=== PATIENT | female | born 1935 | race Caucasian/White ===

== ENCOUNTER 2020-08-26 22:14 | Emergency (ER) | payer MEDICARE, BC ==
[2020-08-26 23:30] VITALS: PULSE 84; TEMP 98.2
--- NOTE | 2020-08-26 23:55 | CT ---
EXAMINATION TYPE: CT brain anibal wo con DATE OF EXAM: 08/26/2020 COMPARISON: 04/15/2014 HISTORY: fall Headache. Neck pain CT DLP: 1416.2 mGycm Automated exposure control for dose reduction was used. There is cerebral cortical atrophy. There is hypodensity in the periventricular white matter. There i s no mass effect nor midline shift. There is no sign of intracranial hemorrhage. There is preseptal s oft tissue swelling around the right orbit. The nasal bone is intact. The calvarium is intact. There is mucosal thickening right side sphenoid sinus. The cervical vertebra have normal alignment. There is degenerative multilevel disc space narrowing an d spur formation. There is no cervical compression fracture. There is multilevel moderate hypertrophi c cervical facet arthropathy. There is no evidence of a fracture. IMPRESSION: Cerebral atrophy and chronic small vessel ischemia. No acute intracranial abnormality. Right side per iorbital soft tissue swelling. Brain unchanged compared to old exam. Sphenoid sinusitis is new compar ed to old exam. Multilevel cervical spondylotic changes. No fracture. No significant change compared to old exam.
--- NOTE | 2020-08-27 00:51 | ED ---
Fall HPI - General Chief Complaint: Fall Stated Complaint: Fall Time Seen by Provider: 08/27/20 00:04 Source: EMS Mode of arrival: EMS - History of Present Illness MD Complaint: fall Onset/Timin -: days(s) Fall From: standing When Fall Occurred: # days [employer] (2) Fall Witnessed: no Place Fall Occurred: home Loss of Consciousness: unsure Prolonged Down Time?: no Symptoms Prior to Fall: none Location: face Severity scale (1-10): 0 Context: tripped/slipped Associated Symptoms: denies - Related Data Home Medications Medication Instructions Recorded Confirmed Aspirin 325 mg PO DAILY 01/26/15 01/26/15 Atorvastatin [Lipitor] 40 mg PO HS 01/26/15 01/26/15 Citalopram Hydrobromide [CeleXA] 10 mg PO DAILY 01/26/15 01/26/15 Enalapril [Vasotec] 5 mg PO DAILY 01/26/15 01/26/15 Eszopiclone [Lunesta] 1 mg PO 01/26/15 01/26/15 Metoprolol Tartrate 25 mg PO QAM 01/26/15 01/26/15 Naproxen Sod/Diphenhydramine 1 each PO HS 01/26/15 01/26/15 [Aleve Pm Caplet] Oxybutynin Chloride [Ditropan] 2.5 mg PO DIRECTED PRN 01/26/15 01/26/15 Stool Softner 1 tab PO DAILY 01/26/15 01/26/15 Tri B-Plex 1 tab PO DAILY 01/26/15 01/26/15 Vitamin D 3 2 tab PO DAILY 01/26/15 01/26/15 diphenhydrAMINE HCL [Benadryl] 25 mg PO HS 01/26/15 01/26/15 metFORMIN HCL [Glucophage] 500 mg PO QAM 01/26/15 01/26/15 Previous Rx's Medication Instructions Recorded HYDROcodone/APAP 7.5-325MG [[place] 1 each PO Q4H PRN #60 tab 02/03/15 7.5] Allergies Allergy/AdvReac Type Severity Reaction Status Date / Time acetaminophen [From Percocet] Allergy Hallucinati Verified 01/26/15 13:42 ons buspirone HCl [From BuSpar] Allergy Nausea Verified 01/26/15 13:42 ciprofloxacin [From Cipro] Allergy Nausea Verified 01/26/15 13:42 ciprofloxacin HCl Allergy Nausea Verified 01/26/15 13:42 [From Cipro] codeine Allergy Unknown Verified 01/26/15 13:42 hydrocodone Allergy Nausea Verified 01/26/15 13:42 ondansetron HCl Allergy Nausea Verified 01/26/15 13:42 [From Zofran (as hydrochloride)] oxycodone HCl [From Percocet] Allergy Hallucinati Verified 01/26/15 13:42 ons trazodone Allergy nightmares Verified 01/26/15 13:42 Review of Systems ROS Statement: Those systems with pertinent positive or pertinent negative responses have been documented in the HPI. ROS Other: All systems not noted in ROS Statement are negative. Constitutional: Denies: fever, chills Eyes: Denies: eye pain, vision change ENT: Denies: ear pain, epistaxis Respiratory: Denies: cough, dyspnea Cardiovascular: Denies: chest pain, palpitations, edema Gastrointestinal: Denies: abdominal pain, vomiting, diarrhea Genitourinary: Denies: dysuria, hematuria Musculoskeletal: Denies: back pain Skin: Denies: rash Neurological: Denies: headache, weakness, numbness, confusion Past Medical History Past Medical History: Coronary Artery Disease (CAD), Diabetes Mellitus, GERD/Reflux, Hyperlipidemia, Hypertension, Osteoarthritis (OA), Skin Disorder Additional Past Medical History / Comment(s): "TIA years ago", hx colitis, rash on legs, numbness in feet History of Any Multi-Drug Resistant Organisms: None Reported Past Surgical History: Heart Catheterization, Hysterectomy, Joint Replacement, Orthopedic Surgery, Tonsillectomy Additional Past Surgical History / Comment(s): left knee surgery, rt hip replacement, surgery for fx pelvis Past Anesthesia/Blood Transfusion Reactions: Motion Sickness Past Psychological History: Anxiety, Depression Smoking Status: Never smoker Past Alcohol Use History: Occasional Past Drug Use History: None Reported - Past Family History Mother Family Medical History: No Reported History General Exam General appearance: alert, in no apparent distress Head exam: Present: atraumatic, normocephalic Eye exam: Present: EOMI, periorbital swelling (Right), periorbital tenderness. Absent: scleral icterus, conjunctival injection, nystagmus ENT exam: Present: normal oropharynx Neck exam: Present: normal inspection, full ROM. Absent: tenderness Respiratory exam: Present: normal lung sounds bilaterally. Absent: respiratory distress, wheezes, rales, rhonchi, stridor Cardiovascular Exam: Present: regular rate, normal rhythm, normal heart sounds. Absent: systolic murmur, diastolic murmur, rubs, gallop GI/Abdominal exam: Present: soft. Absent: distended, tenderness, guarding, rebound, rigid, mass Extremities exam: Present: normal inspection, normal capillary refill. Absent: pedal edema, calf tenderness Back exam: Present: normal inspection. Absent: CVA tenderness (R), CVA tenderness (L), vertebral tenderness Neurological exam: Present: alert, oriented X3. Absent: motor sensory deficit Skin exam: Present: warm, dry, intact, normal color, other (Right periorbital ecchymosis.) Course Vital Signs 08/26/20 22:15 Temperature 98.2 F Pulse Rate 84 Respiratory 20 Rate Blood Pressure 186/102 O2 Sat by Pulse 94 L Oximetry Medical Decision Making - Lab Data Result diagrams: 08/27/20 01:01 08/27/20 01:01 Lab Results 08/27/20 08/27/20 08/27/20 Range/Units 01:01 01:01 01:01 WBC 6.5 (3.8-10.6) k/uL RBC 4.25 (3.80-5.40) m/uL Hgb 12.9 (11.4-16.0) gm/dL Hct 37.7 (34.0-46.0) % MCV 88.6 (80.0-100.0) fL MCH 30.2 (25.0-35.0) pg MCHC 34.1 (31.0-37.0) g/dL RDW 13.1 (11.5-15.5) % Plt Count 199 (150-450) k/uL MPV 8.4 Neutrophils % 51 % Lymphocytes % 35 % Monocytes % 8 % Eosinophils % 3 % Basophils % 1 % Neutrophils # 3.3 (1.3-7.7) k/uL Lymphocytes # 2.3 (1.0-4.8) k/uL Monocytes # 0.5 (0-1.0) k/uL Eosinophils # 0.2 (0-0.7) k/uL Basophils # 0.0 (0-0.2) k/uL Sodium 138 (137-145) mmol/L Potassium 4.3 (3.5-5.1) mmol/L Chloride 102 (98-107) mmol/L Carbon Dioxide 22 (22-30) mmol/L Anion Gap 14 mmol/L BUN 16 (7-17) mg/dL Creatinine 0.72 (0.52-1.04) mg/dL Est GFR (CKD-EPI)AfAm 90 (>60 ml/min/1.73 sqM) Est GFR (CKD-EPI)NonAf 78 (>60 ml/min/1.73 sqM) Glucose 97 (74-99) mg/dL Calcium 9.5 (8.4-10.2) mg/dL Magnesium 2.0 (1.6-2.3) mg/dL Total Bilirubin 0.5 (0.2-1.3) mg/dL AST 36 (14-36) U/L ALT 27 (4-34) U/L Alkaline Phosphatase 58 (38-126) U/L Troponin I <0.012 (0.000-0.034) ng/mL Total Protein 8.0 (6.3-8.2) g/dL Albumin 5.0 (3.5-5.0) g/dL Urine Color Urine Appearance (Clear) Urine pH (5.0-8.0) Ur Specific [place] (1.001-1.035) Urine Protein (Negative) Urine Glucose (UA) (Negative) Urine Ketones (Negative) Urine Blood (Negative) Urine Nitrite (Negative) Urine Bilirubin (Negative) Urine Urobilinogen (<2.0) mg/dL Ur Leukocyte Esterase (Negative) 08/27/20 Range/Units 01:03 WBC (3.8-10.6) k/uL RBC (3.80-5.40) m/uL Hgb (11.4-16.0) gm/dL Hct (34.0-46.0) % MCV (80.0-100.0) fL MCH (25.0-35.0) pg MCHC (31.0-37.0) g/dL RDW (11.5-15.5) % Plt Count (150-450) k/uL MPV Neutrophils % % Lymphocytes % % Monocytes % % Eosinophils % % Basophils % % Neutrophils # (1.3-7.7) k/uL Lymphocytes # (1.0-4.8) k/uL Monocytes # (0-1.0) k/uL Eosinophils # (0-0.7) k/uL Basophils # (0-0.2) k/uL Sodium (137-145) mmol/L Potassium (3.5-5.1) mmol/L Chloride (98-107) mmol/L Carbon Dioxide (22-30) mmol/L Anion Gap mmol/L BUN (7-17) mg/dL Creatinine (0.52-1.04) mg/dL Est GFR (CKD-EPI)AfAm (>60 ml/min/1.73 sqM) Est GFR (CKD-EPI)NonAf (>60 ml/min/1.73 sqM) Glucose (74-99) mg/dL Calcium (8.4-10.2) mg/dL Magnesium (1.6-2.3) mg/dL Total Bilirubin (0.2-1.3) mg/dL AST (14-36) U/L ALT (4-34) U/L Alkaline Phosphatase (38-126) U/L Troponin I (0.000-0.034) ng/mL Total Protein (6.3-8.2) g/dL Albumin (3.5-5.0) g/dL Urine Color Colorless Urine Appearance Clear (Clear) Urine pH 6.0 (5.0-8.0) Ur Specific [place] 1.000 L (1.001-1.035) Urine Protein Negative (Negative) Urine Glucose (UA) Negative (Negative) Urine Ketones Negative (Negative) Urine Blood Negative (Negative) Urine Nitrite Negative (Negative) Urine Bilirubin Negative (Negative) Urine Urobilinogen <2.0 (<2.0) mg/dL Ur Leukocyte Esterase Negative (Negative) - EKG Data -: EKG Interpreted by [facility] EKG shows normal: sinus rhythm, axis (Normal), intervals (Normal), QRS complexes (Normal), ST-T waves (Normal) Rate: normal (Rate 82 bpm) Interpretation: normal EKG Disposition Clinical Impression: Fall, Contusion of face Disposition: HOME SELF-CARE Condition: Good Instructions (If sedation given, give patient instructions): Fall Prevention for Older Adults (ED), [place] (ED), Contusion in Adults (ED) Is patient prescribed a controlled substance at d/c from ED?: No Referrals: Kirstie Vazquez DO [Primary Care Provider] - 1-2 days
[2020-08-27 01:10] LABS: Appearance,Urine Clear (Clear); Bilirubin,Urine Negative (Negative); Blood,Urine Negative (Negative); Color,Urine Colorless; Glucose,Urine (UA) Negative (Negative); Ketones,Urine Negative (Negative); Leukocyte Esterase,Urine Negative (Negative); Nitrite,Urine Negative (Negative); Protein,Urine Negative (Negative); Urobilinogen,Urine <2.0 mg/dL (<2.0)
[2020-08-27 01:10] LABS: Basophils % (A) 1 %; Eosinophils # (A) 0.2 k/uL (0-0.7); Eosinophils % (A) 3 %; HCT 37.7 % (34.0-46.0); HGB 12.9 gm/dL (11.4-16.0); Lymphocytes # (A) 2.3 k/uL (1.0-4.8); Lymphocytes % (A) 35 %; MCH 30.2 pg (25.0-35.0); MCHC 34.1 g/dL (31.0-37.0); MCV 88.6 fL (80.0-100.0); Mean Platelet Volume 8.4; Monocytes # (A) 0.5 k/uL (0-1.0); Monocytes % (A) 8 %; Neutrophils # (A) 3.3 k/uL (1.3-7.7); Neutrophils % (A) 51 %; Platelet Count 199 k/uL (150-450); RBC 4.25 m/uL (3.80-5.40); RDW 13.1 % (11.5-15.5); WBC 6.5 k/uL (3.8-10.6)
[2020-08-27 01:20] LABS: Calcium 9.5 mg/dL (8.4-10.2); Potassium 4.3 mmol/L (3.5-5.1); Total Bilirubin 0.5 mg/dL (0.2-1.3)
[2020-08-27 02:26] VITALS: BP 176/84; RESP 18
== END 2020-08-27 03:21 | disposition home or self-care (01) ==
LOC: EC 22:14
DX: S00.83XA Contusion of other part of head, initial encounter (principal); E11.9 Type 2 diabetes mellitus without complications; I25.10 Atherosclerotic heart disease of native coronary artery without angina pectoris; K21.9 Gastro-esophageal reflux disease without esophagitis; M19.90 Unspecified osteoarthritis, unspecified site; E78.5 Hyperlipidemia, unspecified; I10 Essential (primary) hypertension; F41.9 Anxiety disorder, unspecified; F32.9 Major depressive disorder, single episode, unspecified; Z79.84 Long term (current) use of oral hypoglycemic drugs; W01.0XXA Fall on same level from slipping, tripping and stumbling without subsequent striking against object, initial encounter
CPT/HCPCS: 36415; 70450; 72125; 80053; 81003; 83735; 84484; 85025; 93005; 99284

== ENCOUNTER 2020-09-24 10:02 | Inpatient (IN) | payer MEDICARE, BC ==
[2020-09-24] MEDS ORDERED: KETOROLAC 15 MG/ML 1 ML VIAL IM STA (10:14)
--- NOTE | 2020-09-24 10:17 | ED ---
General Adult HPI - General Chief complaint: Extremity Injury, Lower Stated complaint: Rt Hip Pain Time Seen by Provider: 09/24/20 10:08 Source: patient, RN notes reviewed Mode of arrival: wheelchair Limitations: no limitations - History of Present Illness Initial comments: 85-year-old female with a past medical history of CAD, diabetes mellitus, hyperl ipidemia, hypertension, remote hip replacement presents to the emergency room for right hip pain. Patient reports that she woke up with right hip pain earlier today. She does not report injuring this. When she went to bed she did not have pain. States she cannot walk on the hip. Patient denies any fevers. Patient has no other complaints at this time including shortness of breath, chest pain, abdominal pain, nausea or vomiting, headache, or visual changes. - Related Data Home Medications Medication Instructions Recorded Confirmed Atorvastatin [Lipitor] 40 mg PO HS 01/26/15 09/24/20 Citalopram Hydrobromide [CeleXA] 40 mg PO DAILY 09/24/20 09/24/20 L.acidoph,Paracasei, B.lactis 1 cap PO DAILY 09/24/20 09/24/20 [Probiotic] Metoprolol Succinate (ER) [Toprol 25 mg PO DAILY 09/24/20 09/24/20 Xl] Multivitamins, Thera [Multivitamin 1 tab PO DAILY 09/24/20 09/24/20 (formulary)] Pioglitazone [Actos] 30 mg PO DAILY 09/24/20 09/24/20 metFORMIN HCL ER [Glucophage Xr] 500 mg PO TID 09/24/20 09/24/20 Allergies Allergy/AdvReac Type Severity Reaction Status Date / Time acetaminophen [From Percocet] Allergy Hallucinati Verified 09/24/20 11:20 ons buspirone HCl [From BuSpar] Allergy Nausea Verified 09/24/20 11:20 ciprofloxacin [From Cipro] Allergy Nausea Verified 09/24/20 11:20 ciprofloxacin HCl Allergy Nausea Verified 09/24/20 11:20 [From Cipro] codeine Allergy Unknown Verified 09/24/20 11:20 hydrocodone Allergy Nausea Verified 09/24/20 11:20 ondansetron HCl Allergy Nausea Verified 09/24/20 11:20 [From Zofran (as hydrochloride)] oxycodone HCl [From Percocet] Allergy Hallucinati Verified 09/24/20 11:20 ons trazodone Allergy nightmares Verified 09/24/20 11:20 Review of Systems ROS Statement: Those systems with pertinent positive or pertinent negative responses have been documented in the HPI. ROS Other: All systems not noted in ROS Statement are negative. Past Medical History Past Medical History: Coronary Artery Disease (CAD), Diabetes Mellitus, GERD/Reflux, Hyperlipidemia, Hypertension, Osteoarthritis (OA), Skin Disorder Additional Past Medical History / Comment(s): "TIA years ago", hx colitis, rash on legs, numbness in feet History of Any Multi-Drug Resistant Organisms: None Reported Past Surgical History: Heart Catheterization, Hysterectomy, Joint Replacement, Orthopedic Surgery, Tonsillectomy Additional Past Surgical History / Comment(s): left knee surgery, rt hip replacement, surgery for fx pelvis Past Anesthesia/Blood Transfusion Reactions: Motion Sickness Past Psychological History: Anxiety, Depression Smoking Status: Never smoker Past Alcohol Use History: Daily Past Drug Use History: None Reported - Past Family History Mother Family Medical History: No Reported History General Exam Limitations: no limitations General appearance: alert, in no apparent distress Head exam: Present: atraumatic, normocephalic, normal inspection Eye exam: Present: normal appearance, PERRL, EOMI. Absent: scleral icterus, conjunctival injection, periorbital swelling ENT exam: Present: normal exam, mucous membranes moist Neck exam: Present: normal inspection. Absent: tenderness, meningismus, lymphadenopathy Respiratory exam: Present: normal lung sounds bilaterally. Absent: respiratory distress, wheezes, rales, rhonchi, stridor Cardiovascular Exam: Present: regular rate, normal rhythm, normal heart sounds. Absent: systolic murmur, diastolic murmur, rubs, gallop, clicks GI/Abdominal exam: Present: soft, normal bowel sounds. Absent: distended, tenderness, guarding, rebound, rigid Extremities exam: Present: tenderness (Tenderness noted to the proximal femur of the right lower extremity.), normal capillary refill (Capillary refill less than 2 seconds, DP pulse 2+ in the right lower extremity.), other (Sensation intact right lower extremity.). Absent: full ROM (Patient has about 45 flexion of the hip, extension to neutral position.), pedal edema, calf tenderness Neurological exam: Present: alert Course Vital Signs 09/24/20 09/24/2009/24/21 10:04 11:30 11:54 Temperature 98.1 F 98.5 F Pulse Rate 70 76 Respiratory 18 18 Rate Blood Pressure 211/92 190/106 197/97 O2 Sat by Pulse 97 95 Oximetry Medical Decision Making - Medical Decision Making X-rays were obtained of the femur hip and pelvis. This did show right hip prosthesis with old fracture repair right hemipelvis. No acute osseous abnormality. Remote history of surgery over 10 years ago in [place]. Patient was given Toradol which did help with her symptoms however Attempted to ambulate patient. She is unable to bear weight on the leg. At this point IV pain medication was initiated. Patient again attempted ambulating, was unable to and bili. Patient lives alone without assistance. Patient is unable to go home at this time, as a high fall risk. Patient will be admitted for rehabilitation purposes and pain management.. Discussed case with Dr. Juarez, does accept admission. Requests orthopedic consultation. - Lab Data Result diagrams: 09/24/20 11:11 09/24/20 11:11 Lab Results 09/24/20 09/24/20 Range/Units 11:11 11:11 WBC 7.2 (3.8-10.6) k/uL RBC 4.10 (3.80-5.40) m/uL Hgb 12.5 (11.4-16.0) gm/dL Hct 36.6 (34.0-46.0) % MCV 89.3 (80.0-100.0) fL MCH 30.6 (25.0-35.0) pg MCHC 34.3 (31.0-37.0) g/dL RDW 12.9 (11.5-15.5) % Plt Count 195 (150-450) k/uL MPV 7.0 Neutrophils % 76 % Lymphocytes % 17 % Monocytes % 4 % Eosinophils % 1 % Basophils % 0 % Neutrophils # 5.4 (1.3-7.7) k/uL Lymphocytes # 1.2 (1.0-4.8) k/uL Monocytes # 0.3 (0-1.0) k/uL Eosinophils # 0.1 (0-0.7) k/uL Basophils # 0.0 (0-0.2) k/uL Sodium 136 L (137-145) mmol/L Potassium 4.5 (3.5-5.1) mmol/L Chloride 103 (98-107) mmol/L Carbon Dioxide 23 (22-30) mmol/L Anion Gap 10 mmol/L BUN 18 H (7-17) mg/dL Creatinine 0.58 (0.52-1.04) mg/dL Est GFR (CKD-EPI)AfAm >90 (>60 ml/min/1.73 sqM) Est GFR (CKD-EPI)NonAf 85 (>60 ml/min/1.73 sqM) Glucose 158 H (74-99) mg/dL Calcium 9.0 (8.4-10.2) mg/dL Total Bilirubin 0.5 (0.2-1.3) mg/dL AST 33 (14-36) U/L ALT 24 (4-34) U/L Alkaline Phosphatase 50 (38-126) U/L Total Protein 7.8 (6.3-8.2) g/dL Albumin 4.7 (3.5-5.0) g/dL Disposition Clinical Impression: Hip pain, Unable to ambulate, Risk for falls Disposition: ADMITTED IP TO THIS HOSP Is patient prescribed a controlled substance at d/c from ED?: No Referrals: Kirstie Vazquez DO [Primary Care Provider] - 1-2 days Time of Disposition: 12:14
--- NOTE | 2020-09-24 10:44 | XR ---
EXAMINATION TYPE: XR femur RT DATE OF EXAM: 09/24/2020 COMPARISON: None HISTORY: Pain TECHNIQUE: 2 view right femur FINDINGS: There is an old right pelvic fracture with multiple plates and screws present. Acetabular c omponent is present. Femoral prosthesis present. No acute fractures are evident. Distal femur appears intact. There is degenerative change at the knee. No joint effusion is evident. IMPRESSION: 1. Right hip prosthesis with old fracture repair right skyla- pelvis. No acute osseous abnormalities evident.
--- NOTE | 2020-09-24 10:45 | XR ---
EXAMINATION TYPE: XR pelvis AP view DATE OF EXAM: 09/24/2020 COMPARISON: None HISTORY: Pain TECHNIQUE: AP pelvis FINDINGS: Right pelvic fracture repair is evident with multiple plates and screws. There is right hip prosthesis. No acute fractures are evident. Left femoral head articulates with the acetabulum. IMPRESSION: 1. Old right hemipelvis fracture repair. No acute osseous abnormalities evident.
[2020-09-24] MEDS ORDERED: MORPHINE SULFATE 2 MG/ML SYRINGE IVP STA (10:55)
[2020-09-24] MEDS ORDERED: ONDANSETRON 4 MG/2 ML VIAL IVP STA (11:14)
[2020-09-24 11:29] LABS: Basophils % (A) 0 %; Eosinophils # (A) 0.1 k/uL (0-0.7); Eosinophils % (A) 1 %; HCT 36.6 % (34.0-46.0); HGB 12.5 gm/dL (11.4-16.0); Lymphocytes # (A) 1.2 k/uL (1.0-4.8); Lymphocytes % (A) 17 %; MCH 30.6 pg (25.0-35.0); MCHC 34.3 g/dL (31.0-37.0); MCV 89.3 fL (80.0-100.0); Monocytes # (A) 0.3 k/uL (0-1.0); Monocytes % (A) 4 %; Neutrophils # (A) 5.4 k/uL (1.3-7.7); Neutrophils % (A) 76 %; Platelet Count 195 k/uL (150-450); RDW 12.9 % (11.5-15.5); WBC 7.2 k/uL (3.8-10.6)
[2020-09-24] MEDS ORDERED: METOPROLOL SUCCINATE (ER) 25 MG TAB.ER.24H PO STA (11:49)
[2020-09-24 11:51] LABS: ALT 24 U/L (4-34); AST 33 U/L (14-36); African American GFR (CKD) >90 (>60 ml/min/1.73 sqM); Albumin 4.7 g/dL (3.5-5.0); Alkaline Phosphatase 50 U/L (38-126); Anion Gap 10 mmol/L; Blood Urea Nitrogen 18 mg/dL (7-17); Carbon Dioxide 23 mmol/L (22-30); Chloride 103 mmol/L (98-107); Glucose 158 mg/dL (74-99); Non-African American GFR(CKD) 85 (>60 ml/min/1.73 sqM); Potassium 4.5 mmol/L (3.5-5.1); Sodium 136 mmol/L (137-145); Total Bilirubin 0.5 mg/dL (0.2-1.3); Total Protein 7.8 g/dL (6.3-8.2)
[2020-09-24] MEDS ORDERED: NALOXONE 0.4 MG/ML 1 ML VIAL IV PRN (12:16)
[2020-09-24] MEDS ORDERED: MORPHINE SULFATE 2 MG/ML SYRINGE IV PRN (12:16)
[2020-09-24] MEDS ORDERED: traMADol 50 MG TAB PO PRN (12:16)
[2020-09-24] MEDS ORDERED: hydrALAZINE HCL 20 MG/ML 1 ML VIAL IVP PRN (16:32)
--- NOTE | 2020-09-24 16:47 | P.HPIM ---
History of Present Illness H&P Date: 09/24/20 Chief Complaint: Right hip pain Ms. Franz is an 85-year-old female with a past medical history of coronary artery disease, diabetes mellitus, GERD, hypertension, hyperlipidemia, osteoarthritis coming in with a chief complaint of right hip pain since this morning. Patient states that this morning she woke up with the pain in her right hip and that she could not walk due to pain and so she came into the hospital for further evaluation. Patient denies having any fall this morning. But she had a fall on 08/27/2020 and was here in the ED, she had a CAT scan of the brain that was within normal limits and so discharged home. She also had contusion of her face and black eyes. Patient states that the contusions are resolving and she still has some darkness under her right eye. This morning in the ER patient had an x-ray of her femur and x-ray of the pelvis showing right hip prosthesis with old fracture repair right hemipelvis. No acute rashes abnormalities evident. In the ER at the time of admission patient's vitals temperature 98.5, heart rate 76, blood pressure 133/92, saturating at 95% on room air, respiratory rate 18. On reviewing the labs white count 7.2, hemoglobin 12.5, platelets 195. Sodium 136, blood pressure 1.5, chloride 103, bicarbonate 23, BUN 18, creatinine 0.58. Coronar virus PCR is negative. Patient is admitted for further management. Review of Systems REVIEW OF SYSTEMS: CONSTITUTIONAL: Denies having any fevers chills or rigors. HEENT: No recent visual problems or hearing problems. Denied any sore throat. CARDIOVASCULAR: No chest pain, orthopnea, PND, no palpitations, no syncope. PULMONARY: no hemoptysis. GASTROINTESTINAL: No diarrhea, no nausea, no vomiting, no abdominal pain. NEUROLOGICAL: No focal weakness, slurred speech or headaches or blurring of vision HEMATOLOGICAL: Denies any bleeding or petechiae. GENITOURINARY: Denies any burning micturition, frequency, or urgency. MUSCULOSKELETAL/RHEUMATOLOGICAL: Denies any joint pain, swelling, or any muscle pain. ENDOCRINE: Denies any polyuria or polydipsia. The rest of the 14-point review of systems is negative. Past Medical History Past Medical History: Coronary Artery Disease (CAD), Diabetes Mellitus, GERD/Reflux, Hyperlipidemia, Hypertension, Osteoarthritis (OA), Skin Disorder Additional Past Medical History / Comment(s): "TIA years ago", hx colitis, rash on legs, numbness in feet History of Any Multi-Drug Resistant Organisms: None Reported Past Surgical History: Heart Catheterization, Hysterectomy, Joint Replacement, Orthopedic Surgery, Tonsillectomy Additional Past Surgical History / Comment(s): left knee surgery, rt hip replacement, surgery for fx pelvis Past Anesthesia/Blood Transfusion Reactions: Motion Sickness Past Psychological History: Anxiety, Depression Smoking Status: Never smoker Past Alcohol Use History: Daily Past Drug Use History: None Reported - Past Family History Mother Family Medical History: No Reported History Medications and Allergies Home Medications Medication Instructions Recorded Confirmed Type Atorvastatin [Lipitor] 40 mg PO HS 01/26/15 09/24/20 History Citalopram Hydrobromide [CeleXA] 40 mg PO DAILY 09/24/20 09/24/20 History L.acidoph,Paracasei, B.lactis 1 cap PO DAILY 09/24/20 09/24/20 History [Probiotic] Metoprolol Succinate (ER) [Toprol 25 mg PO DAILY 09/24/20 09/24/20 History Xl] Multivitamins, Thera [Multivitamin 1 tab PO DAILY 09/24/20 09/24/20 History (formulary)] Pioglitazone [Actos] 30 mg PO DAILY 09/24/20 09/24/20 History metFORMIN HCL ER [Glucophage Xr] 500 mg PO TID 09/24/20 09/24/20 History Allergies Allergy/AdvReac Type Severity Reaction Status Date / Time acetaminophen [From Percocet] Allergy Hallucinati Verified 09/24/20 11:20 ons buspirone HCl [From BuSpar] Allergy Nausea Verified 09/24/20 11:20 ciprofloxacin [From Cipro] Allergy Nausea Verified 09/24/20 11:20 ciprofloxacin HCl Allergy Nausea Verified 09/24/20 11:20 [From Cipro] codeine Allergy Unknown Verified 09/24/20 11:20 hydrocodone Allergy Nausea Verified 09/24/20 11:20 ondansetron HCl Allergy Nausea Verified 09/24/20 11:20 [From Zofran (as hydrochloride)] oxycodone HCl [From Percocet] Allergy Hallucinati Verified 09/24/20 11:20 ons trazodone Allergy nightmares Verified 09/24/20 11:20 Physical Exam Vitals: Vital Signs Temp Pulse Pulse Resp BP BP Pulse Ox 09/24/20 15:13 98.5 F 75 18 200/81 93 L 09/24/20 14:30 98.5 F 76 18 133/92 95 09/24/20 13:51 187/90 09/24/20 12:37 80 18 193/100 94 L 09/24/20 11:54 197/97 09/24/20 11:30 98.5 F 76 18 190/106 95 09/24/20 10:04 98.1 F 70 18 211/92 97 Intake and Output 09/24/20 09/24/20 09/24/20 06:59 14:59 22:59 Other: Weight 68.039 kg PHYSICAL EXAMINATION: GENERAL: Elderly female sitting up in the bed appears to be no acute distress HEENT: Pupils are round and equally reacting to light. EOMI. No scleral icterus. No conjunctival pallor. Dark-colored under the right eye- looks like resolving contusion CARDIOVASCULAR: S1 and S2 present. PULMONARY: Bilateral breath sounds are positive. No wheeze or crackles. ABDOMEN: Soft, nontender, nondistended, normoactive bowel sounds. No palpable organomegaly. MUSCULOSKELETAL: No joint swelling or deformity. Right hip exam- no swelling, redness or tenderness on deep palpation. EXTREMITIES: No cyanosis, clubbing, or pedal edema. Peripheral pulses felt. NEUROLOGICAL: patient is alert awake oriented 3 .Gross neurological examination did not reveal any focal deficits. SKIN: No rashes. Results CBC & Chem 7: 09/24/20 11:11 09/24/20 11:11 Labs: Abnormal Lab Results - Last 24 Hours (Table) 09/24/20 Range/Units 11:11 Sodium 136 L (137-145) mmol/L BUN 18 H (7-17) mg/dL Glucose 158 H (74-99) mg/dL Assessment and Plan Assessment: ASSESSMENT Intractable right hip pain Right hip prosthesis is in place Nausea and vomiting Elevated blood pressure Type 2 diabetes mellitus Hypertension Hyperlipidemia Multiple joint osteoarthritis History of TIA Anxiety with depression PLAN: Patient is admitted for intractable right hip pain, reviewed the x-rays of the right hip and pelvis showing no acute fractures. Orthopedics has been consulted. Pain management with morphine and tramadol for now. Patient's systolic blood pressure has been running high could be due to underlying pain and that she threw up this morning. We'll start on hydralazine for systolic blood pressures more than 160. Patient has been restarted on home medications. Might benefit from PT OT consult. Further recommendations to follow depending on the progress of the patient.
[2020-09-24] MEDS: metFORMIN 500 MG TAB PO SCH ×2 (16:50→21:20)
[2020-09-24] MEDS: ACETAMINOPHEN TAB 325 MG TAB PO PRN (19:52)
[2020-09-24] MEDS ORDERED: ATORVASTATIN 40 MG TAB PO SCH (21:00)
[2020-09-24 21:10] VITALS: RESP 16
[2020-09-25] MEDS: SODIUM CHLORIDE 0.9% 1,000 ML IV SCH ×3 (03:05→13:22)
[2020-09-25 06:27] LABS: Basophils % (A) 1 %; Eosinophils # (A) 0.1 k/uL (0-0.7); Eosinophils % (A) 1 %; HCT 37.2 % (34.0-46.0); HGB 11.9 gm/dL (11.4-16.0); Lymphocytes % (A) 27 %; MCH 28.8 pg (25.0-35.0); MCHC 31.9 g/dL (31.0-37.0); MCV 90.2 fL (80.0-100.0); Mean Platelet Volume 7.1; Monocytes # (A) 0.5 k/uL (0-1.0); Monocytes % (A) 7 %; Neutrophils # (A) 4.7 k/uL (1.3-7.7); Neutrophils % (A) 62 %; Platelet Count 195 k/uL (150-450); RBC 4.13 m/uL (3.80-5.40); RDW 13.4 % (11.5-15.5); WBC 7.5 k/uL (3.8-10.6)
[2020-09-25] MEDS: metFORMIN 500 MG TAB PO SCH (07:58)
[2020-09-25] MEDS ORDERED: ENOXAPARIN 40 MG/0.4 ML SYRINGE SQ SCH (09:00)
[2020-09-25] MEDS ORDERED: LACTOBACILLUS ACIDOPH & BULGAR 1 EACH PACKET PO SCH (09:00)
[2020-09-25] MEDS ORDERED: PIOGLITAZONE 30 MG TAB PO SCH (09:00)
[2020-09-25] MEDS ORDERED: MULTIVITAMINS, THERA 1 EACH TAB PO SCH (09:00)
[2020-09-25] MEDS ORDERED: METOPROLOL SUCCINATE (ER) 25 MG TAB.ER.24H PO SCH (09:00)
[2020-09-25] MEDS ORDERED: CITALOPRAM HYDROBROMIDE 20 MG TAB PO SCH (09:00)
[2020-09-25 09:22] LABS: African American GFR (CKD) 77.9 (60.0-200.0); Anion Gap 10.1 mmol/L (4.00-12.00); BUN/Creat Ratio 17.5 Ratio (12.00-20.00); Calcium 9.1 mg/dL (8.7-10.3); Carbon Dioxide 27.9 mmol/L (21.6-31.8); Non-African American GFR(CKD) 67.2 (60.0-200.0); Potassium 4.9 mmol/L (3.5-5.5)
--- NOTE | 2020-09-25 10:20 | P.CNOR ---
History of Present Illness - [facility] Consult date: 09/25/20 Consult reason: joint pain History of present illness: Patient is an 85-year-old female who presented to [facility] yesterday with regards to pain in her right hip region. Patient apparently woke up with severe pain, she noticed more with weightbearing. Upon arrival to the hospital, imaging and lab tests were done. Images demonstrated no obvious acute fractures or dislocations. Previous hardware was noted on the right pelvis/acetabulum along with the right femur. Hardware appeared stable with no acute changes. Patient denied any trauma that day, including falls. Patient did have a fall on 08/27/2020, she was evaluated at that time [facility], she did not experience any right lower extremity pain at that time. Patient was evaluated today at bedside, she is resting comfortably, she sitting up in bed and having breakfast. She notes most of the pain on the lateral, proximal aspect of her right lower extremity when she weightbears. Patient normally utilizes a walker for ambulation. Patient lives at [facility], she no longer drives. She states that the previous surgery on her right lower extremity/pelvis was done over 20 years ago after she fell down some stairs. Since the time of surgery she gets occasional discomfort in the right lower extremity but nothing acute. She denies any left lower extremity pain. She denies any bilateral upper extremity pain. She denies any new onset cervical, thoracic or lumbar pain. She denies any paresthesias of the lower extremities, she denies any bowel or bladder changes. Review of Systems Constitutional: Reports as per HPI Past Medical History Past Medical History: Coronary Artery Disease (CAD), Diabetes Mellitus, GERD/Reflux, Hyperlipidemia, Hypertension, Osteoarthritis (OA), Skin Disorder Additional Past Medical History / Comment(s): "TIA years ago", hx colitis, rash on legs, numbness in feet History of Any Multi-Drug Resistant Organisms: None Reported Past Surgical History: Heart Catheterization, Hysterectomy, Joint Replacement, Orthopedic Surgery, Tonsillectomy Additional Past Surgical History / Comment(s): left knee surgery, rt hip replacement, surgery for fx pelvis Past Anesthesia/Blood Transfusion Reactions: Motion Sickness Past Psychological History: Anxiety, Depression Smoking Status: Never smoker Past Alcohol Use History: Daily Past Drug Use History: None Reported - Past Family History Mother Family Medical History: No Reported History Medications and Allergies Home Medications Medication Instructions Recorded Confirmed Type Atorvastatin [Lipitor] 40 mg PO HS 01/26/15 09/24/20 History Citalopram Hydrobromide [CeleXA] 40 mg PO DAILY 09/24/20 09/24/20 History L.acidoph,Paracasei, B.lactis 1 cap PO DAILY 09/24/20 09/24/20 History [Probiotic] Metoprolol Succinate (ER) [Toprol 25 mg PO DAILY 09/24/20 09/24/20 History Xl] Multivitamins, Thera [Multivitamin 1 tab PO DAILY 09/24/20 09/24/20 History (formulary)] Pioglitazone [Actos] 30 mg PO DAILY 09/24/20 09/24/20 History metFORMIN HCL ER [Glucophage Xr] 500 mg PO TID 09/24/20 09/24/20 History Allergies Allergy/AdvReac Type Severity Reaction Status Date / Time acetaminophen [From Percocet] Allergy Hallucinati Verified 09/24/20 11:20 ons buspirone HCl [From BuSpar] Allergy Nausea Verified 09/24/20 11:20 ciprofloxacin [From Cipro] Allergy Nausea Verified 09/24/20 11:20 ciprofloxacin HCl Allergy Nausea Verified 09/24/20 11:20 [From Cipro] codeine Allergy Unknown Verified 09/24/20 11:20 hydrocodone Allergy Nausea Verified 09/24/20 11:20 ondansetron HCl Allergy Nausea Verified 09/24/20 11:20 [From Zofran (as hydrochloride)] oxycodone HCl [From Percocet] Allergy Hallucinati Verified 09/24/20 11:20 ons trazodone Allergy nightmares Verified 09/24/20 11:20 Physical Examination Right lower extremity: There is a well-healed incision on the lateral aspect of the proximal femur. There are no obvious skin changes, this to include ecchymosis, areas of soft tissue swelling or fluctuance There is no obvious malrotation of the lower extremity when compared to contralateral side Point tenderness over the greater trochanter on the right side, there is no tenderness with palpation involving the distal femur, knee, lower leg, foot or ankle Logroll maneuver reproduces no groin pain, she is able to straight leg raise no difficulty Calf is soft, no tenderness with palpation. Plantar flexion, dorsiflexion, EHL, FHL are intact Sensory exam light touch throughout the extremity is intact, dorsalis pedis pulses 2+ General orthopedic exam: Range of motion of the bilateral lower extremities in all major muscle groups are intact. Strength testing, she has 4 out of 5 on the right side with regards to hip flexion, extension and knee flexion. Remaining strength exam is 5 out of 5. Strength testing on the left lower extremity is 5 out of 5 with hip flexion, knee extension, knee flexion, plantar flexion, dorsiflexion, EHL, FHL. Leg lengths appear equal of the bilateral lower extremities Results - Labs Labs: Abnormal Lab Results - Last 24 Hours (Table) 09/24/20 09/25/20 Range/Units 11:11 05:41 Sodium 136 L (137-145) mmol/L BUN 18 H (7-17) mg/dL Glucose 158 H 117 H (74-99) mg/dL H & H 09/24/20 09/25/20 Range/Units 11:11 05:41 Hgb 12.5 11.9 (11.4-16.0) gm/dL Hct 36.6 37.2 (34.0-46.0) % Result Diagrams: 09/25/20 05:41 09/25/20 05:41 - Diagnostic results Hip x-ray: report reviewed, image reviewed (Images demonstrate previous hardware on the right side of the pelvis along with right femur. Hardware appears stable, there is no obvious lucencies appreciated. 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 Harrison. No orthopedic surgical intervention recommended at this time Hardware on the right acetabulum/right femur appears stable at this time Trochanter bursitis is noted on the right side, this is likely due to activity level/previous surgery. Recommend PT/OT evaluation for this, this including home exercises. We discussed the use of Tylenol and also cbuo-bpp-umzenxy anti- inflammatories. We discussed icing of the genital area for some dramatic relief PT/OT evaluation Weight-bear as tolerated with walker Pain control, Tylenol or topl-bkz-yidmbuc anti-inflammatories as needed Icing techniques were discussed GI and DVT prophylaxis per primary medical service Medical recommendations Discharge planning: Patient does live at [facility], I'm not sure if there is access to physical therapy at that facility. Patient may be able to utilize home exercises after being discharged back to [facility]. We recommend follow-up with Dr. Harrison in the next 2-3 weeks for recheck of symptoms and to discuss further treatment options. Time with Patient: Less than 30
[2020-09-25 13:04] VITALS: BP 149/75; PULSE 75; TEMP 98.8
[2020-09-25] MEDS: ACETAMINOPHEN TAB 325 MG TAB PO PRN (13:22)
--- NOTE | 2020-09-25 16:43 | P.DS ---
Providers Date of admission: 09/24/20 12:43 Expected date of discharge: 09/25/20 Attending physician: Jodi Juarez Consults: 09/24/20 12:17 Consult Physician Routine Consulting Provider: Antonio Harrison Consult Reason/Comments: Hip pain, unable to ambulate Do you want consulting provider notified?: Yes Primary care physician: Kirstie Vazquez Hospital Course: Final diagnosis Intractable right hip pain Right hip prosthesis is in place Nausea and vomiting Elevated blood pressure Type 2 diabetes mellitus Hypertension Hyperlipidemia Multiple joint osteoarthritis History of TIA Anxiety with depression Full code Discharge disposition Patient is being discharged in a stable condition with guarded prognosis to [facility] where she is a resident in the independent living facility. Patient will follow-up with Dr. Kirstie Vazquez in the outpatient setting upon discharge. Patient is also to follow-up with orthopedics Dr. Harrison in the outpatient setting. Prescription was provided for PT/OT therapy at her living facility. Total time taken is greater than 35 minutes. Hospital course Ms. Franz is an 85-year-old female with a past medical history of coronary artery disease, diabetes mellitus, GERD, hypertension, hyperlipidemia, osteoarthritis coming in with a chief complaint of right hip pain since this morning. Patient states that this morning she woke up with the pain in her right hip and that she could not walk due to pain and so she came into the hospital for further evaluation. Patient denies having any fall this morning. But she had a fall on 08/27/2020 and was here in the ED, she had a CAT scan of the brain that was within normal limits and so discharged home. She also had contusion of her face and black eyes. Patient states that the contusions are resolving and she still has some darkness under her right eye. This morning in the ER patient had an x-ray of her femur and x-ray of the pelvis showing right hip prosthesis with old fracture repair right hemipelvis. No acute rashes abnormalities evident. In the ER at the time of admission patient's vitals temperature 98.5, heart rate 76, blood pressure 133/92, saturating at 95% on room air, respiratory rate 18. On reviewing the labs white count 7.2, hemoglobin 12.5, platelets 195. Sodium 136, blood pressure 1.5, chloride 103, bicarbonate 23, BUN 18, creatinine 0.58. Coronar virus PCR is negative. Patient is admitted for further management. 09/25/2020 She is seen in follow-up status post being evaluated by physical therapy stating that she would not qualify for rehab as she does well with ambulation with a walker. Patient was evaluated by orthopedic surgery recommending continuing conservative management and no surgical intervention at this time and to follow- up with them outpatient in 2-3 weeks. Prescription was provided for physical therapy at her facility and will continue with home care with [facility] to facilitate this physical therapy. Currently no reports of chest pain, shortness of breath, or palpitations. Patient is afebrile. No reports of nausea or vomiting and patient is tolerating diet. Patient will be discharged home today. On exam vital signs are stable. Cardio S1, S2 are muffled. Respiratory system shows diminished breath sounds at the bases with no wheezing or rhonchi noted. Abdomen is soft and nontender. Nervous system shows no focal deficits. Please refer to medication reconciliation sheet for a list of medications. Patient Condition at Discharge: Stable Plan - Discharge Summary New Discharge Prescriptions: New Acetaminophen Tab [Tylenol] 650 mg PO Q6HR PRN #30 tab PRN Reason: Mild Pain Or Fever > 100.5 traMADol HCl [Ultram] 50 mg PO Q6H PRN #12 tab PRN Reason: Moderate Pain Continue Atorvastatin [Lipitor] 40 mg PO HS Multivitamins, Thera [Multivitamin (formulary)] 1 tab PO DAILY Metoprolol Succinate (ER) [Toprol XL] 25 mg PO DAILY metFORMIN HCL ER [Glucophage Xr] 500 mg PO TID Pioglitazone [Actos] 30 mg PO DAILY L.acidoph,Paracasei, B.lactis [Probiotic] 1 cap PO DAILY Citalopram Hydrobromide [CeleXA] 40 mg PO DAILY Discharge Medication List Atorvastatin [Lipitor] 40 mg PO HS 01/26/15 [History] Citalopram Hydrobromide [CeleXA] 40 mg PO DAILY 09/24/20 [History] L.acidoph,Paracasei, B.lactis [Probiotic] 1 cap PO DAILY 09/24/20 [History] Metoprolol Succinate (ER) [Toprol XL] 25 mg PO DAILY 09/24/20 [History] Multivitamins, Thera [Multivitamin (formulary)] 1 tab PO DAILY 09/24/20 [History] Pioglitazone [Actos] 30 mg PO DAILY 09/24/20 [History] metFORMIN HCL ER [Glucophage Xr] 500 mg PO TID 09/24/20 [History] Acetaminophen Tab [Tylenol] 650 mg PO Q6HR PRN #30 tab 09/25/20 [Rx] traMADol HCl [Ultram] 50 mg PO Q6H PRN #12 tab 09/25/20 [Rx] Follow up Appointment(s)/Referral(s): [facility], [NON-STAFF] - 1 Week Kirstie Vazquez DO [Primary Care Provider] - 09/27/20 2:15 pm (With Dr. Ashish Haines) Antonio Harrison MD [STAFF PHYSICIAN] - 10/18/20 10:00 am Patient Instructions/Handouts: Hip Pain (GEN) Activity/Diet/Wound Care/Special Instructions: Activity as tolerated Patient to follow-up with primary care provider upon discharge Follow-up with orthopedics Dr. Harrison outpatient in 2-3 weeks Continue with physical therapy in the home setting Continue current diet Discharge Disposition: HOME WITH HOME HEALTH SERVICES
--- NOTE | 2020-10-03 14:01 | CDI ---
Documentation Clarification Form Date: 10/03/2020 01:17:00 PM From: Josie Enrique Phone: If you have a question about this query, please contact Arlyn Hernandes [employer] at [phone] between 8am and 5pm. Admit Date: 09/24/2020 12:43:00 PM Patient Name: Alison Franz Visit Number: [id number] Discharge Date: 09/25/2020 03:14:00 PM ATTENTION: The Clinical Documentation Specialists (CDI) and [facility] Coding Staff appreciate your assistance in clarifying documentation. Please respond to the clarification below the line at the bottom and electronically sign. The CDI & [facility] Coding staff will review the response and follow-up if needed. Please note: Queries are made part of the Legal Health Record. If you have any questions, please contact the author of this message via ITS. Dr. Jodi Juarez Your patient has the documented symptom of right hip pain. Ortho consult documents patient with Right Trochanteric bursitis. Additional clarification regarding the etiology/cause of this symptom is requested. Patient history/risk factors: Recent fall. THR, pain right hip Clinical Indicators: Radiology: Hardware intact Treatment: Recommend PT OT including home exercises and OTC anti inflammatories Consults: Ortho consult documents Trochanter bursitis Please provide additional clarification regarding the etiology/cause of the right hip pain. Right Trochanter bursitis [ ] Other, please specify [ ] Unable to determine Right Trochanter bursitis MTDD
== END 2020-09-25 15:14 | disposition home health service (06) | DRG 558 ==
LOC: EC 10:02 → 5NMEDONC 12:43
PROVIDERS: ADMIT Internal Medicine; ATTEND Internal Medicine
DX: M70.61 Trochanteric bursitis, right hip (principal); E11.9 Type 2 diabetes mellitus without complications; E78.5 Hyperlipidemia, unspecified; F41.8 Other specified anxiety disorders; I10 Essential (primary) hypertension; I25.10 Atherosclerotic heart disease of native coronary artery without angina pectoris; M15.9 Polyosteoarthritis, unspecified; Z20.822 Contact with and (suspected) exposure to COVID-19; F32.9 Major depressive disorder, single episode, unspecified; S00.83XA Contusion of other part of head, initial encounter; Z91.81 History of falling; R11.2 Nausea with vomiting, unspecified; Z79.84 Long term (current) use of oral hypoglycemic drugs; Z79.899 Other long term (current) drug therapy; Z86.73 Personal history of transient ischemic attack (TIA), and cerebral infarction without residual deficits; Z90.710 Acquired absence of both cervix and uterus; Z96.641 Presence of right artificial hip joint; Z88.1 Allergy status to other antibiotic agents; Z88.5 Allergy status to narcotic agent
CPT/HCPCS: 36415; 72170; 80048; 80053; 85025; 87636; 96372; 96374; 96375; 99285

== ENCOUNTER → 2021-03-13 | Outpatient (CLI) | payer MEDICARE, BC ==
--- NOTE | 2021-03-13 13:59 | XR ---
EXAMINATION TYPE: XR chest 2V DATE OF EXAM: 03/13/2021 COMPARISON: Chest x-ray April 15, 2014 HISTORY: Chest pain. TECHNIQUE: Frontal and lateral views of the chest are obtained. FINDINGS: There is left basilar linear scarring. There is chronic parenchymal change without suspici ous focal air space opacity, pleural effusion, or pneumothorax seen. The cardiac silhouette size is stable and within normal limits with atherosclerotic change thoracic aorta. Degenerative change bilat eral glenohumeral joints. IMPRESSION: Chronic changes without acute pulmonary process.
--- NOTE | 2021-03-13 14:03 | XR ---
EXAMINATION TYPE: XR Hip Complete RT DATE OF EXAM: 03/13/2021 CLINICAL HISTORY: Recent fall injury with pain TECHNIQUE: AP and frogleg views of the right hip are obtained. COMPARISON: Right femur x-ray September 24, 2020 FINDINGS: Venetie osseous structures are demineralized. Metallic hardware from total right hip arthrop lasty remains stable and satisfactory in position. There are additional superior fixating plates ysabel g with internal pelvic ring fixating plate into pubic symphysis redemonstrated. No new displaced fracture is seen. Overlying soft tissue is unremarkable. IMPRESSION: As above.
== END | disposition home or self-care (01) ==
LOC: RADXRMAIN 12:45
PROVIDERS: ATTEND Physician Assistant Medical
DX: R07.9 Chest pain, unspecified (principal); S79.911A Unspecified injury of right hip, initial encounter; W19.XXXA Unspecified fall, initial encounter
CPT/HCPCS: 71046; 73502

== ENCOUNTER 2023-12-02 12:04 | Inpatient (IN) | payer MEDICARE, BC ==
--- NOTE | 2023-12-02 12:16 | ED ---
General Adult HPI - General Chief complaint: Nausea/Vomiting/Diarrhea Stated complaint: Weakness/Vomiting Time Seen by Provider: 12/02/23 12:08 Source: patient, RN notes reviewed Mode of arrival: EMS Limitations: no limitations - History of Present Illness Initial comments: Patient is an 88-year-old female presenting to the emergency department with jabari dacosta for drowsiness. Patient presents from [facility]. Patient states onset of symptoms was last night. Patient states she vomited twice. Patient states she did not feel well and therefore laid down on the ground. Patient was found by staff at 1045 this morning lying on the ground with emesis. Patient still has nausea. No constipation or diarrhea. No abdominal pain. Patient denies syncope. No head injury. No neck or back pain. No chest pain or dyspnea. - Related Data Home Medications Medication Instructions Recorded Confirmed Atorvastatin [Lipitor] 40 mg PO HS 01/26/15 09/24/20 Citalopram Hydrobromide [CeleXA] 40 mg PO DAILY 09/24/20 09/24/20 L.acidoph,Paracasei, B.lactis 1 cap PO DAILY 09/24/20 09/24/20 [Probiotic] Metoprolol Succinate (ER) [Toprol 25 mg PO DAILY 09/24/20 09/24/20 XL] Multivitamins, Thera [Multivitamin 1 tab PO DAILY 09/24/20 09/24/20 (formulary)] Pioglitazone [Actos] 30 mg PO DAILY 09/24/20 09/24/20 metFORMIN HCL ER [Glucophage XR] 500 mg PO TID 09/24/20 09/24/20 Previous Rx's Medication Instructions Recorded Acetaminophen Tab [Tylenol] 650 mg PO Q6HR PRN #30 tab 09/25/20 traMADol HCl [Ultram] 50 mg PO Q6H PRN #12 tab 09/25/20 Allergies Allergy/AdvReac Type Severity Reaction Status Date / Time acetaminophen [From Percocet] Allergy Hallucinati Verified 12/02/23 12:14 ons buspirone HCl [From BuSpar] Allergy Nausea Verified 12/02/23 12:14 ciprofloxacin [From Cipro] Allergy Nausea Verified 12/02/23 12:14 ciprofloxacin HCl Allergy Nausea Verified 12/02/23 12:14 [From Cipro] codeine Allergy Unknown Verified 12/02/23 12:14 hydrocodone Allergy Nausea Verified 12/02/23 12:14 ondansetron HCl Allergy Nausea Verified 12/02/23 12:14 [From Zofran (as hydrochloride)] oxycodone HCl [From Percocet] Allergy Hallucinati Verified 12/02/23 12:14 ons trazodone Allergy nightmares Verified 12/02/23 12:14 Review of Systems ROS Statement: Those systems with pertinent positive or pertinent negative responses have been documented in the HPI. ROS Other: All systems not noted in ROS Statement are negative. Constitutional: Denies: fever Eyes: Denies: eye pain ENT: Denies: ear pain Cardiovascular: Denies: chest pain Endocrine: Denies: fatigue Gastrointestinal: Reports: nausea, vomiting. Denies: abdominal pain, diarrhea, constipation Neurological: Reports: as per HPI. Denies: headache Past Medical History Past Medical History: Coronary Artery Disease (CAD), Diabetes Mellitus, GERD/ Reflux, Hyperlipidemia, Hypertension, Osteoarthritis (OA), Skin Disorder Additional Past Medical History / Comment(s): "TIA years ago", hx colitis, rash on legs, numbness in feet History of Any Multi-Drug Resistant Organisms: None Reported Past Surgical History: Heart Catheterization, Hysterectomy, Joint Replacement, Orthopedic Surgery, Tonsillectomy Additional Past Surgical History / Comment(s): left knee surgery, rt hip replacement, surgery for fx pelvis Past Anesthesia/Blood Transfusion Reactions: Motion Sickness Past Psychological History: Anxiety, Depression Smoking Status: Never smoker Past Alcohol Use History: Daily Past Drug Use History: None Reported - Past Family History Mother Family Medical History: No Reported History General Exam Limitations: no limitations General appearance: alert, in no apparent distress Head exam: Present: atraumatic Eye exam: Present: normal appearance, PERRL, EOMI ENT exam: Present: mucous membranes dry Neck exam: Present: normal inspection. Absent: tenderness, meningismus Respiratory exam: Present: normal lung sounds bilaterally Cardiovascular Exam: Present: regular rate, normal rhythm GI/Abdominal exam: Present: soft. Absent: tenderness Extremities exam: Present: normal inspection, full ROM. Absent: tenderness Neurological exam: Present: alert, CN II-XII intact. Absent: motor sensory deficit Expanded Neurological exam: Present: protecting the airway Speech: Present: fluid speech Cranial nerves: EOM's Intact: Normal Motor strength exam: RUE: 5, LUE: 5, RLE: 4, LLE: 4 Eye Response: (4) open spontaneously Motor Response: (6) obeys commands Verbal Response: (4) confused conversation Psychiatric exam: Present: normal affect, normal mood Skin exam: Present: normal color Course Vital Signs 12/02/23 12/02/23 12/02/23 12:10 12:30 13:00 Temperature 98.5 F Pulse Rate 89 85 Respiratory 18 18 18 Rate Blood Pressure 181/89 181/89 171/93 O2 Sat by Pulse 94 L 89 L Oximetry 12/02/23 14:00 Temperature Pulse Rate 91 Respiratory 18 Rate Blood Pressure 155/70 O2 Sat by Pulse Oximetry EKG Findings - EKG Results: EKG: interpreted by DAREND, sinus rhythm, normal axis, normal QRS, normal ST/T Medical Decision Making - Medical Decision Making Was pt. sent in by a medical professional or institution (SEUN Ruiz, TECHNOLOGY PROFESSIONAL, urgent care, hospital, or assisted...) When possible be specific @ -Patient was sent from nursing facility Did you speak to anyone other than the patient for history (EMS, parent, family, police, friend...)? What history was obtained from this source @ -No Did you review nursing and triage notes (agree or disagree)? Why? @ -I reviewed and agree with nursing and triage notes Were old charts reviewed (outside hosp., previous admission, EMS record, old EKG, old radiological studies, urgent care reports/EKG's, assisted records)? Report findings @ -No old charts were reviewed Differential Diagnosis (chest pain, altered mental status, abdominal pain women, abdominal pain men, vaginal bleeding, weakness, fever, dyspnea, syncope, headache, dizziness, GI bleed, back pain, seizure, CVA, palpatations, mental health, musculoskeletal)? @ -Differential Weakness: Hypoglycemia, shock, sepsis, hyponatremia, anemia, infection, MS, ETOH, adverse medicine reaction, overdose, stroke, this is not meant to be an all-inclusive list. EKG interpreted by me (3pts min.). @ -As above X-rays interpreted by me (1pt min.). @ -Chest x-ray shows some increase interstitial prominence CT interpreted by me (1pt min.). @ -CT scan of the brain does show atrophy. Left basal ganglion and left mendoza radiata with decreased attenuation which does not appear new however not present on previous CT 2020. U/S interpreted by me (1pt. min.). @ -None done What testing was considered but not performed or refused? (CT, X-rays, U/S, labs)? Why? @ -None What meds were considered but not given or refused? Why? @ -None Did you discuss the management of the patient with other professionals (professionals i.e. DrNghia, PA, TECHNOLOGY PROFESSIONAL, lab, RT, psych nurse, licensed social worker, hot plate plywood press feeder, teacher, ordnance officer, family service caseworker)? Give summary @ -Case was discussed with Dr. Haines who will admit covering Dr. Vazquez. Was smoking cessation discussed for >3mins.? @ -No Was critical care preformed (if so, how long)? @ -No Were there social determinants of health that impacted care today? How? (Homelessness, low income, unemployed, alcoholism, drug addiction, transportation, low edu. Level, literacy, decrease access to med. care, custodial, rehab)? @ -No Was there de-escalation of care discussed even if they declined (Discuss DNR or withdrawal of care, Hospice)? DNR status @ -No What co-morbidities impacted this encounter? (DM, HTN, Smoking, COPD, CAD, Cancer, CVA, ARF, Chemo, Hep., AIDS, mental health diagnosis, sleep apnea, morbid obesity)? @ -None Was patient admitted / discharged? Hospital course, mention meds given and route, prescriptions, significant lab abnormalities, going to OR and other pertinent info. @ -Patient presents with vomiting and weakness. Patient was lying on the ground throughout the night. Patient still feels weak. Patient will be admitted. Undiagnosed new problem with uncertain prognosis? @ -No Drug Therapy requiring intensive monitoring for toxicity (Heparin, Nitro, Insulin, Cardizem)? @ -No Were any procedures done? @ -No Diagnosis/symptom? @ -Weakness, dehydration Acute, or Chronic, or Acute on Chronic? @ -Acute, acute Uncomplicated (without systemic symptoms) or Complicated (systemic symptoms)? @ -Default Side effects of treatment? @ -No Exacerbation, Progression, or Severe Exacerbation? @ -No Poses a threat to life or bodily function? How? (Chest pain, USA, MS, pneumonia, PE, COPD, DKA, ARF, appy, cholecystitis, CVA, Diverticulitis, Homicidal, Suicidal, threat to staff... and all critical care pts) @ -No - Lab Data Result diagrams: 12/02/23 12:20 12/02/23 12:20 Lab Results 12/02/23 12/02/23 12/02/23 Range/Units 12:20 12:20 12:20 WBC 12.9 H (3.8-10.6) k/uL RBC 4.60 (3.80-5.40) m/uL Hgb 13.9 (11.4-16.0) gm/dL Hct 42.3 (34.0-46.0) % MCV 92.0 (80.0-100.0) fL MCH 30.3 (25.0-35.0) pg MCHC 33.0 (31.0-37.0) g/dL RDW 12.4 (11.5-15.5) % Plt Count 202 (150-450) k/uL MPV 8.2 Neutrophils % 87 % Lymphocytes % 8 % Monocytes % 4 % Eosinophils % 1 % Basophils % 0 % Neutrophils # 11.2 H (1.3-7.7) k/uL Lymphocytes # 1.0 (1.0-4.8) k/uL Monocytes # 0.5 (0-1.0) k/uL Eosinophils # 0.2 (0-0.7) k/uL Basophils # 0.0 (0-0.2) k/uL PT 10.7 (10.0-12.5) sec INR 1.0 (<1.2) APTT 21.7 L (22.0-30.0) sec Sodium 135 L (137-145) mmol/L Potassium 4.4 (3.5-5.1) mmol/L Chloride 101 (98-107) mmol/L Carbon Dioxide 23 (22-30) mmol/L Anion Gap 11 mmol/L BUN 16 (7-17) mg/dL Creatinine 0.51 L (0.52-1.04) mg/dL Est GFR (CKD-EPI)AfAm >90 (>60 ml/min/1.73 sqM) Est GFR (CKD-EPI)NonAf 86 (>60 ml/min/1.73 sqM) Glucose 166 H (74-99) mg/dL Plasma Lactic Acid Alex (0.7-2.0) mmol/L Calcium 9.5 (8.4-10.2) mg/dL Magnesium 1.7 (1.6-2.3) mg/dL Total Bilirubin 1.2 (0.2-1.3) mg/dL AST 45 H (14-36) U/L ALT 28 (4-34) U/L Alkaline Phosphatase 74 (38-126) U/L Creatine Kinase 278 H (30-135) U/L Troponin I (0.000-0.034) ng/mL Total Protein 8.3 H (6.3-8.2) g/dL Albumin 5.1 H (3.5-5.0) g/dL Urine Color Urine Appearance (Clear) Urine pH (5.0-8.0) Ur Specific [place] (1.001-1.035) Urine Protein (Negative) Urine Glucose (UA) (Negative) Urine Ketones (Negative) Urine Blood (Negative) Urine Nitrite (Negative) Urine Bilirubin (Negative) Urine Urobilinogen (<2.0) mg/dL Ur Leukocyte Esterase (Negative) Urine RBC (0-5) /hpf Urine WBC (0-5) /hpf Ur Squamous Epith Cells (0-4) /hpf Urine Bacteria (None) /hpf Urine Mucus (None) /hpf 12/02/23 12/02/23 12/02/23 Range/Units 12:20 12:20 13:24 WBC (3.8-10.6) k/uL RBC (3.80-5.40) m/uL Hgb (11.4-16.0) gm/dL Hct (34.0-46.0) % MCV (80.0-100.0) fL MCH (25.0-35.0) pg MCHC (31.0-37.0) g/dL RDW (11.5-15.5) % Plt Count (150-450) k/uL MPV Neutrophils % % Lymphocytes % % Monocytes % % Eosinophils % % Basophils % % Neutrophils # (1.3-7.7) k/uL Lymphocytes # (1.0-4.8) k/uL Monocytes # (0-1.0) k/uL Eosinophils # (0-0.7) k/uL Basophils # (0-0.2) k/uL PT (10.0-12.5) sec INR (<1.2) APTT (22.0-30.0) sec Sodium (137-145) mmol/L Potassium (3.5-5.1) mmol/L Chloride (98-107) mmol/L Carbon Dioxide (22-30) mmol/L Anion Gap mmol/L BUN (7-17) mg/dL Creatinine (0.52-1.04) mg/dL Est GFR (CKD-EPI)AfAm (>60 ml/min/1.73 sqM) Est GFR (CKD-EPI)NonAf (>60 ml/min/1.73 sqM) Glucose (74-99) mg/dL Plasma Lactic Acid Alex 2.2 H* (0.7-2.0) mmol/L Calcium (8.4-10.2) mg/dL Magnesium (1.6-2.3) mg/dL Total Bilirubin (0.2-1.3) mg/dL AST (14-36) U/L ALT (4-34) U/L Alkaline Phosphatase (38-126) U/L Creatine Kinase (30-135) U/L Troponin I <0.012 (0.000-0.034) ng/mL Total Protein (6.3-8.2) g/dL Albumin (3.5-5.0) g/dL Urine Color Colorless Urine Appearance Clear (Clear) Urine pH 6.0 (5.0-8.0) Ur Specific [place] 1.015 (1.001-1.035) Urine Protein 2+ H (Negative) Urine Glucose (UA) 1+ H (Negative) Urine Ketones 1+ H (Negative) Urine Blood Small H (Negative) Urine Nitrite Negative (Negative) Urine Bilirubin Negative (Negative) Urine Urobilinogen <2.0 (<2.0) mg/dL Ur Leukocyte Esterase Negative (Negative) Urine RBC 3 (0-5) /hpf Urine WBC 3 (0-5) /hpf Ur Squamous Epith Cells 4 (0-4) /hpf Urine Bacteria Rare H (None) /hpf Urine Mucus Rare H (None) /hpf Disposition Clinical Impression: Dehydration, Weakness Disposition: ADMITTED IP TO THIS HOSP Is patient prescribed a controlled substance at d/c from ED?: No Referrals: Kirstie Vazquez DO [Primary Care Provider] - 1-2 days Time of Disposition: 14:51
[2023-12-02] MEDS: SODIUM CHLORIDE 0.9% 500 ML 500 ML IV STA (12:28)
[2023-12-02] MEDS: METOCLOPRAMIDE 5 MG/ML 2 ML VIAL IVP STA (12:28)
[2023-12-02] MEDS: FAMOTIDINE 20 MG/2 ML VIAL IV STA (12:29)
[2023-12-02 12:32] LABS: Basophils % (A) 0 %; Eosinophils # (A) 0.2 k/uL (0-0.7); Eosinophils % (A) 1 %; HCT 42.3 % (34.0-46.0); HGB 13.9 gm/dL (11.4-16.0); Lymphocytes % (A) 8 %; MCH 30.3 pg (25.0-35.0); Mean Platelet Volume 8.2; Monocytes # (A) 0.5 k/uL (0-1.0); Monocytes % (A) 4 %; Neutrophils # (A) 11.2 k/uL (1.3-7.7); Neutrophils % (A) 87 %; Platelet Count 202 k/uL (150-450); RDW 12.4 % (11.5-15.5); WBC 12.9 k/uL (3.8-10.6)
[2023-12-02 12:52] LABS: ALT 28 U/L (4-34); African American GFR (CKD) >90 (>60 ml/min/1.73 sqM); Anion Gap 11 mmol/L; Blood Urea Nitrogen 16 mg/dL (7-17); Calcium 9.5 mg/dL (8.4-10.2); Carbon Dioxide 23 mmol/L (22-30); Chloride 101 mmol/L (98-107); Creatine Kinase 278 U/L (30-135); Glucose 166 mg/dL (74-99); Non-African American GFR(CKD) 86 (>60 ml/min/1.73 sqM); Sodium 135 mmol/L (137-145); Total Bilirubin 1.2 mg/dL (0.2-1.3)
[2023-12-02 12:54] LABS: Prothrombin Time 10.7 sec (10.0-12.5)
[2023-12-02 12:57] LABS: Partial Thromboplastin Time 21.7 sec (22.0-30.0)
--- NOTE | 2023-12-02 13:11 | CT ---
EXAMINATION TYPE: CT brain wo con DATE OF EXAM: 12/02/2023 COMPARISON: 08/26/2020 HISTORY: weakness and nausea CT DLP: 1095.[address] of the brain was performed. The ventricles, basal cisterns and sulci overlying the cerebral convexities demonstrate mild enlargem ent. Since prior examination there are new areas of decreased attenuation within the left basal gangl ia and anterior left mendoza radiata which may be chronic in nature. Correlate clinically. There is no evidence for intracranial hemorrhage or sulcal effacement. There is decreased attenuation about the periventricular white matter and deep white matter of both c erebral hemispheres, compatible with chronic small vessel ischemia. Differential diagnosis does inclu de demyelination. No mass effects are seen.No midline shift. Osseous calvarium is intact. If symptoms persist consider MRI. IMPRESSION: 1. Age related atrophic and chronic small vessel ischemic change.Since prior examination there are ne w areas of decreased attenuation within the left basal ganglia and anterior left mendoza radiata which may be chronic in nature. Correlate clinically.
--- NOTE | 2023-12-02 13:16 | XR ---
EXAMINATION TYPE: XR chest 2V DATE OF EXAM: 12/02/2023 COMPARISON: 03/13/2021 INDICATION: Weakness TECHNIQUE: Frontal and lateral views of the chest are obtained. FINDINGS: The heart size is normal. The pulmonary vasculature is somewhat prominent. The lungs are clear. There may be some degenerative change of the left shoulder IMPRESSION: 1. Correlate for mild volume overload.
[2023-12-02 13:38] LABS: Appearance,Urine Clear (Clear); Bacteria,Urine Rare /hpf; Bilirubin,Urine Negative (Negative); Blood,Urine Small (Negative); Color,Urine Colorless; Glucose,Urine (UA) 1+ (Negative); Ketones,Urine 1+ (Negative); Leukocyte Esterase,Urine Negative (Negative); Mucus,Urine Rare /hpf; Nitrite,Urine Negative (Negative); Protein,Urine 2+ (Negative); RBC,Urine 3 /hpf (0-5); Specific Gravity,Urine 1.015 (1.001-1.035); Squamous Epithelial Cell,Urine 4 /hpf (0-4); Urobilinogen,Urine <2.0 mg/dL (<2.0); WBC,Urine 3 /hpf (0-5)
[2023-12-02 13:54] LABS: AST 45 U/L (14-36); Albumin 5.1 g/dL (3.5-5.0); Magnesium 1.7 mg/dL (1.6-2.3); Potassium 4.4 mmol/L (3.5-5.1); Total Protein 8.3 g/dL (6.3-8.2)
[2023-12-02 13:55] LABS: Alkaline Phosphatase 74 U/L (38-126)
[2023-12-02] MEDS ORDERED: NALOXONE 0.4 MG/ML 1 ML VIAL IV PRN (14:52)
[2023-12-02] MEDS ORDERED: PROCHLORPERAZINE 5 MG TAB PO PRN (14:52)
[2023-12-02] MEDS: SODIUM CHLORIDE 0.9% 1,000 ML IV SCH (16:24)
--- NOTE | 2023-12-02 17:07 | P.CNNES ---
History of Present Illness Consult date: 12/02/23 Requesting physician: Elmo Hernandez Reason for Consult: weakness History of Present Illness: This is an 88-year-old woman with history of possible TIA about 8 years ago, hypertension who presented emergency department since she was found down on the floor by her friend and she is confused. Son is at bedside who provides the history. According to the son he talked to her last this past Friday in the later afternoon around 4:00 PM and was doing well. And it seems that she was supposed to go out with her friend to a restaurant today but when her friend came to check on her she was found on the floor. Patient lives in an assisted living facility in [facility]. Friend did not hear from her yesterday as well. Unsure when last normal state. According to the patient she sat on the floor since she wanted to but she does not seem to be a reliable historian. Denies of any weakness, any numbness, any visual disturbance, any headache. According to the son she had possible TIA about 8 years ago and she is on baby aspirin 81 mg daily. Has not had any history of seizures in the past according the son. Some of the workup during this hospital visit consisted of: Patient is afebrile. Presentation blood pressure is 181/89. Sodium is 135, initial serum glucose is 166, plasma lactic acid vein is 2.2 and the repeat is 1.1 Calcium magnesium are within normal limits CK level is 278 I reviewed the rest of the lab workup Urinalysis is negative for underlying urinary tract infection CT of the head is reported as age-related atrophy and chronic small vessel ischemic change. Since prior examination there are new areas of decreased attenuation within the left basal ganglia and anterior left mendoza radiata which may be chronic in nature. Correlate clinically. History reviewed the CT of the head and I felt the changes reported on the left basal ganglia mendoza radiata seems more subacute to chronic but more subacute in my opinion. Review of Systems Limited but the positive and negative as per HPI. Past Medical History Past Medical History: Coronary Artery Disease (CAD), Diabetes Mellitus, GERD/Reflux, Hyperlipidemia, Hypertension, Osteoarthritis (OA), Skin Disorder Additional Past Medical History / Comment(s): "TIA years ago", hx colitis, rash on legs, numbness in feet History of Any Multi-Drug Resistant Organisms: None Reported Past Surgical History: Heart Catheterization, Hysterectomy, Joint Replacement, Orthopedic Surgery, Tonsillectomy Additional Past Surgical History / Comment(s): left knee surgery, rt hip replacement, surgery for fx pelvis Past Anesthesia/Blood Transfusion Reactions: Motion Sickness Past Psychological History: Anxiety, Depression Smoking Status: Never smoker Past Alcohol Use History: Daily Past Drug Use History: None Reported - Past Family History Mother Family Medical History: No Reported History Medications and Allergies Home Medications Medication Instructions Recorded Confirmed Type Atorvastatin [Lipitor] 40 mg PO HS 01/26/15 12/02/23 History Citalopram Hydrobromide [CeleXA] 40 mg PO DAILY 09/24/20 12/02/23 History L.acidoph,Paracasei, B.lactis 1 cap PO DAILY 09/24/20 12/02/23 History [Probiotic] Metoprolol Succinate (ER) [Toprol 25 mg PO HS 09/24/20 12/02/23 History XL] Multivitamins, Thera [Multivitamin 1 tab PO DAILY 09/24/20 12/02/23 History (formulary)] Aspirin EC [Ecotrin Low Dose] 81 mg PO DAILY 12/02/23 12/02/23 History Clotrimazole [Clotrimazole AF] 1 applic TOPICAL DAILY 12/02/23 12/02/23 History Metoprolol Succinate (ER) [Toprol 50 mg PO DAILY 12/02/23 12/02/23 History Xl] Mirabegron [Myrbetriq] 50 mg PO DAILY 12/02/23 12/02/23 History Triamcinolone 0.1% Cream [Kenalog 1 applicatio TOPICAL BID 12/02/23 12/02/23 History 0.1% Cream] Allergies Allergy/AdvReac Type Severity Reaction Status Date / Time codeine Allergy Unknown Verified 12/02/23 15:34 buspirone HCl [From BuSpar] AdvReac Nausea Verified 12/02/23 15:34 ciprofloxacin [From Cipro] AdvReac Nausea Verified 12/02/23 15:34 ciprofloxacin HCl AdvReac Nausea Verified 12/02/23 15:34 [From Cipro] hydrocodone AdvReac Nausea Verified 12/02/23 15:34 ondansetron HCl AdvReac Nausea Verified 12/02/23 15:34 [From Zofran (as hydrochloride)] oxycodone HCl [From Percocet] AdvReac Hallucinati Verified 12/02/23 15:34 ons trazodone AdvReac nightmares Verified 12/02/23 15:34 Physical Examination - Vital Signs Vital Signs: Vital Signs Temp Pulse Resp BP Pulse Ox 12/02/23 16:34 101 H 18 151/74 97 12/02/23 14:00 91 18 155/70 12/02/23 13:00 18 171/93 12/02/23 12:30 85 18 181/89 89 L 12/02/23 12:10 98.5 F 89 18 181/89 94 L Intake and Output 12/02/23 12/02/23 12/02/23 06:59 14:59 22:59 Other: Weight 79.379 kg General: Lying in bed and is not in acute distress. Neuro: Limited. Patient is drowsy but is awake both voice. She is oriented to self. Initially she did not know her date of then later she was on the second or third try she was able to correctly state her date of . Again on the initial try she did not know where she is at and she stated she is at home and then on the seco nd try she stated she was in the hospital. On the second try she was able to correctly name her son name who is at bedside. She is following few simple commands. The pupils are round equal reactive to light. Visual dewey are full to confrontation. No facial weakness. no dysarthria. Motor strength is hard to assess individual muscle strength because of her cooperation but she was able to lift all extremity above gravity and from limitation for of examination it appeared nonfocal. Normal tone and bulk Sensory is normal to touch throughout Cerebellar: Is normal [id number] Reflexes deferred because of her cooperation Results - Laboratory Findings CBC and BMP: 12/02/23 12:20 12/02/23 12:20 Abnormal Lab Findings: Abnormal Labs 12/02/23 12/02/23 12/02/23 12:20 12:20 12:20 WBC 12.9 H Neutrophils # 11.2 H APTT 21.7 L Sodium 135 L Creatinine 0.51 L Glucose 166 H Plasma Lactic Acid Alex AST 45 H Creatine Kinase 278 H Total Protein 8.3 H Albumin 5.1 H Urine Protein Urine Glucose (UA) Urine Ketones Urine Blood Urine Bacteria Urine Mucus 12/02/23 12/02/23 12:20 13:24 WBC Neutrophils # APTT Sodium Creatinine Glucose Plasma Lactic Acid Alex 2.2 H* AST Creatine Kinase Total Protein Albumin Urine Protein 2+ H Urine Glucose (UA) 1+ H Urine Ketones 1+ H Urine Blood Small H Urine Bacteria Rare H Urine Mucus Rare H Assessment and Plan Assessment: This is an 88-year-old woman with history of TIA about 8 day ago, diabetes mellitus who was found down by her friend on the floor in her apartment. Patient resides in an independent living facility. Patient stated that he talked her last this past Friday and she sounded she was doing well and unknown last normal state. CT of the head left basal ganglia and mendoza radiata are new compared to prior CT but appears chronic. Upon reviewing the images I felt things on the left basal ganglia and mendoza radiata seems more subacute. Episode of confusion probable subacute ischemic stroke Hypertensive urgency Encephalopathy likely due to above Diabetes mellitus History of TIA about 8 years ago the patient is on aspirin 81 mg Plan: I ordered MRI of the brain with and without, carotid duplex, 2D echo, lipid panel I restarted her home dose of aspirin 81 mg and in addition I started the patient on Plavix 75 mg daily. I started the patient on Lipitor 40 mg nightly for secondary stroke prophylaxis Ordered routine EEG TSH, vitamin B12, folate, hemoglobin A1c Neurochecks Cardiac monitoring I consulted with PT OT and GPS NAVIGATION INSTALLER Will defer the rest of the medical management the primary and other specialist For DVT prophylaxis I started the patient on subcu heparin for 5000 units every 12 hours I discussed with the patient and her son who is at bedside Thank for the consult Time with Patient: Greater than 30
--- NOTE | 2023-12-02 19:13 | US ---
EXAMINATION TYPE: US carotid duplex BILAT DATE OF EXAM: 12/02/2023 COMPARISON: NONE CLINICAL INDICATION: Female, 88 years old with history of stroke; Stroke. Patient moving a lot during exam. TECHNIQUE: Carotid duplex ultrasound examination. Indirect Doppler criteria was utilized. FINDINGS: EXAM MEASUREMENTS: RIGHT: Peak Systolic Velocity (PSV) cm/sec ----- Right CCA: 111.8 ----- Right ICA: 76.9 ----- Right ECA: 141.7 ICA/CCA ratio: 0.7 RIGHT: End Diastole cm/sec ----- Right CCA: 18.8 ----- Right ICA: 15.8 ----- Right ECA: 9.7 LEFT: Peak Systolic Velocity (PSV) cm/sec ----- Left CCA: 111.0 ----- Left ICA: 68.0 ----- Left ECA: 129.1 ICA/CCA ratio: 0.6 LEFT: End Diastole cm/sec ----- Left CCA: 13.7 ----- Left ICA: 12.0 ----- Left ECA: 0.0 VERTEBRALS (direction of flow): Right Vertebral: Antegrade Left Vertebral: Antegrade Rhythm: Normal PUBLIC RELATIONS INTERN NOTES: Limited due to patient movement. There is plaque seen within bilateral bulbs. S lightly elevated velocities seen within bilateral ECAs IMPRESSION: Less than 50% stenosis of the bilateral carotid bifurcations. Criteria for Assigning % of Stenosis / Diameter reduction (Estimation based on the indirect measurements of the internal carotid artery velocities (ICA PSV). 1. Normal (no stenosis)=ICA PSV < 125 cm/s: ratio < 2.0: ICA EDV<40 cm/s. 2. Less than 50% stenosis=ICA PSV < 125 cm/s: ratio < 2.0: ICA EDV<40 cm/s. 3. 50 to 69% stenosis=ICA PSV of 125 to 230 cm/s: ration 2.0 ? 4.0: ICA EDV 40-100 cm/s. 4. Greater than 70% stenosis to near occlusion= ICA PSV > 230 cm/s: ratio > 4.0: ICA EDV > 100 cm/s. 5. Near occlusion= ICA PSV velocities may be low or undetectable: variable ratio and ICA EDV. 6. Total occlusion=unable to detect flow.
[2023-12-02] MEDS: CLOPIDOGREL 75 MG TAB PO SCH (19:30)
[2023-12-02] MEDS: ATORVASTATIN 40 MG TAB PO SCH (21:39)
[2023-12-02] MEDS: HEPARIN SODIUM,PORCINE 5,000 UNIT/ML 1 ML VIAL SQ SCH (21:40)
[2023-12-03 04:02] LABS: Chol/HDL Ratio 5.18 Ratio; LDL Cholesterol,Calculated 192.1 mg/dL (0.0-131.0)
[2023-12-03 06:44] LABS: Glucose,Whole Blood 127 mg/dL (70-110)
[2023-12-03] MEDS: hydrALAZINE HCL 20 MG/ML 1 ML VIAL IVP STA (07:26)
[2023-12-03] MEDS: amLODIPine 5 MG TAB PO STA (07:27)
[2023-12-03] MEDS: ASPIRIN 81 MG PO SCH (10:21)
[2023-12-03] MEDS: CITALOPRAM HYDROBROMIDE 20 MG TAB PO SCH (10:21)
[2023-12-03] MEDS: PANTOPRAZOLE 40 MG/10 ML VIAL IV SCH (10:21)
[2023-12-03] MEDS: METOPROLOL SUCCINATE (ER) 50 MG TAB.ER.24H PO SCH (10:22)
[2023-12-03 10:47] LABS: Basophils # (A) 0.04 X 10*3/uL (0.00-0.10); Basophils % (A) 0.4 %; Eosinophils # (A) 0.12 X 10*3/uL (0.04-0.35); Eosinophils % (A) 1.2 %; HCT 38.7 % (37.2-46.3); HGB 12.4 g/dL (12.0-15.0); Lymphocytes % (A) 23.8 %; MCH 29.2 pg (27.0-32.0); MCV 91.3 FL (80.0-97.0); Mean Platelet Volume 10.9 FL (9.5-12.2); Monocytes # (A) 1.03 X 10*3/uL (0.20-1.00); Monocytes % (A) 10.2 %; NRBC Per 100 WBC 0 X 10*3/uL (0.00-0.01); Neutrophils # (A) 6.46 X 10*3/uL (1.80-7.70); Neutrophils % (A) 64.1 %; Platelet Count 197 X 10*3/uL (140-440); RBC 4.24 X 10*6/uL (4.10-5.20); RDW 12.7 % (11.5-14.5); WBC 10.08 X 10*3/uL (4.50-10.00)
[2023-12-03 11:01] LABS: ALT 23 U/L (8-44); AST 38 U/L (13-35); Albumin 4.3 g/dL (3.8-4.9); Albumin/Globulin Ratio 1.79 Ratio (1.60-3.17); Alkaline Phosphatase 77 U/L (41-126); BUN/Creat Ratio 16.62 Ratio (12.00-20.00); Blood Urea Nitrogen 13.3 mg/dL (9.0-27.0); Calcium 8.8 mg/dL (8.7-10.3); Carbon Dioxide 24.9 mmol/L (21.6-31.8); Chloride 102 mmol/L (96-109); Globulin 2.4 g/dL (1.6-3.3); Glucose 125 mg/dL (70-110); Potassium 3.6 mmol/L (3.5-5.5); Sodium 138 mmol/L (135-145); Total Bilirubin 0.6 mg/dL (0.3-1.2); Total Protein 6.7 g/dL (6.2-8.2)
--- NOTE | 2023-12-03 11:04 | P.PN ---
Subjective Progress Note Date: 12/03/23 I am following up with the patient. Patient feels about the same and denies of any neurological issues. Objective - Vital Signs Vital signs: Vital Signs Temp 98.2 F 12/03/23 06:24 Pulse 101 H 12/03/23 09:00 Resp 18 12/03/23 09:00 BP 147/66 12/03/23 09:00 Pulse Ox 92 L 12/03/23 09:00 FiO2 Intake & Output 12/02/23 12/03/23 12/03/23 18:59 06:59 18:59 Intake Total 1050 Output Total 270 Balance 780 Weight 79.379 kg Intake: IV 1050 Sodium Chloride 0.9% 1, 1050 000 ml @ 75 mls/hr IV . [id number] [facility] Rx#:[id number] Output: Urine 270 Other: Voiding Method Incontinent Incontinent External Catheter External Catheter - Exam General: Lying in bed and is not in acute distress. Neuro: Limited. Patient is mildly drowsy but is awake both voice. She is oriented to self and place. She is following few simple commands. Is able to name some objects correctly such as watch and glasses appear The pupils are round equal reactive to light. Visual dewey are full to confrontation. No facial weakness. no dysarthria. Motor strength is hard to assess individual muscle strength because of her cooperation but she was able to lift all extremity above gravity and from limitation for of examination it appeared nonfocal. Normal tone and bulk Sensory is normal to touch throughout Cerebellar: Is normal [id number] Reflexes deferred because of her cooperation Some of the workup during this hospital visit consisted of: Patient is afebrile. Presentation blood pressure is 181/89. Sodium is 135, initial serum glucose is 166, plasma lactic acid vein is 2.2 and the repeat is 1.1 Calcium magnesium are within normal limits CK level is 278 Panel is triglyceride 121, cholesterol is 268, LDL is 192 and HDL is 51. Vitamin B12 is 239 Serum folate is 20.50 TSH is 2.20 Hemoglobin A1c is 6.7. Urinalysis is negative for underlying urinary tract infection CT of the head is reported as age-related atrophy and chronic small vessel ischemic change. Since prior examination there are new areas of decreased att enuation within the left basal ganglia and anterior left mendoza radiata which may be chronic in nature. Correlate clinically. History reviewed the CT of the head and I felt the changes reported on the left basal ganglia mendoza radiata seems more subacute to chronic but more subacute in my opinion. Carotid duplex is reported as less than 50% stenosis of bilateral carotid bifurcation. - Labs CBC & Chem 7: 12/03/23 06:59 12/02/23 12:20 Labs: Abnormal Lab Results - Last 24 Hours (Table) 12/02/23 12/02/23 12/02/23 Range/Units 12:20 12:20 12:20 WBC 12.9 H (3.8-10.6) k/uL Neutrophils # 11.2 H (1.3-7.7) k/uL Monocytes # (0.20-1.00) X 10*3/uL APTT 21.7 L (22.0-30.0) sec Sodium 135 L (137-145) mmol/L Creatinine 0.51 L (0.52-1.04) mg/dL Glucose 166 H (74-99) mg/dL POC Glucose (mg/dL) (70-110) mg/dL Hemoglobin A1c (<=6.0) % Plasma Lactic Acid Alex (0.7-2.0) mmol/L AST 45 H (14-36) U/L Creatine Kinase 278 H (30-135) U/L Total Protein 8.3 H (6.3-8.2) g/dL Albumin 5.1 H (3.5-5.0) g/dL Cholesterol (0.00-200.00) mg/dL LDL Cholesterol, Calc (0.0-131.0) mg/dL Urine Protein (Negative) Urine Glucose (UA) (Negative) Urine Ketones (Negative) Urine Blood (Negative) Urine Bacteria (None) /hpf Urine Mucus (None) /hpf 12/02/23 12/02/23 12/02/23 Range/Units 12:20 12:20 12:20 WBC (3.8-10.6) k/uL Neutrophils # (1.3-7.7) k/uL Monocytes # (0.20-1.00) X 10*3/uL APTT (22.0-30.0) sec Sodium (137-145) mmol/L Creatinine (0.52-1.04) mg/dL Glucose (74-99) mg/dL POC Glucose (mg/dL) (70-110) mg/dL Hemoglobin A1c 6.7 H (<=6.0) % Plasma Lactic Acid Alex 2.2 H* (0.7-2.0) mmol/L AST (14-36) U/L Creatine Kinase (30-135) U/L Total Protein (6.3-8.2) g/dL Albumin (3.5-5.0) g/dL Cholesterol 268.00 H (0.00-200.00) mg/dL LDL Cholesterol, Calc 192.1 H (0.0-131.0) mg/dL Urine Protein (Negative) Urine Glucose (UA) (Negative) Urine Ketones (Negative) Urine Blood (Negative) Urine Bacteria (None) /hpf Urine Mucus (None) /hpf 12/02/23 12/03/23 12/03/23 Range/Units 13:24 06:42 06:59 WBC 10.08 H (3.8-10.6) k/uL Neutrophils # (1.3-7.7) k/uL Monocytes # 1.03 H (0.20-1.00) X 10*3/uL APTT (22.0-30.0) sec Sodium (137-145) mmol/L Creatinine (0.52-1.04) mg/dL Glucose (74-99) mg/dL POC Glucose (mg/dL) 127 H (70-110) mg/dL Hemoglobin A1c (<=6.0) % Plasma Lactic Acid Alex (0.7-2.0) mmol/L AST (14-36) U/L Creatine Kinase (30-135) U/L Total Protein (6.3-8.2) g/dL Albumin (3.5-5.0) g/dL Cholesterol (0.00-200.00) mg/dL LDL Cholesterol, Calc (0.0-131.0) mg/dL Urine Protein 2+ H (Negative) Urine Glucose (UA) 1+ H (Negative) Urine Ketones 1+ H (Negative) Urine Blood Small H (Negative) Urine Bacteria Rare H (None) /hpf Urine Mucus Rare H (None) /hpf Assessment and Plan Assessment: This is an 88-year-old woman with history of TIA about 8 day ago, diabetes mellitus who was found down by her friend on the floor in her apartment. Patient resides in an independent living facility. Patient stated that he talked her last this past Friday and she sounded she was doing well and unknown last normal state. CT of the head left basal ganglia and mendoza radiata are new compared to prior CT but appears chronic. Upon reviewing the images I felt things on the left basal ganglia and mendoza radiata seems more subacute. Episode of confusion probable subacute ischemic stroke Hypertensive urgency Very low normal vitamin B12 239 Encephalopathy likely due to above Diabetes mellitus and hemoglobin A1c 6.7 History of TIA about 8 years ago the patient is on aspirin 81 mg Plan: Pending MRI of the brain with and without, 2D echo and routine EEG. I restarted her home dose of aspirin 81 mg and in addition I started the patient on Plavix 75 mg daily. I started the patient on Lipitor 40 mg nightly for secondary stroke prophylaxis With very low normal vitamin B12 I gave the patient 1 time 1000 mcg IM and after that p.o. daily. Neurochecks Cardiac monitoring PT OT and THERMAL SURFACING MACHINE OPERATOR are consulted Will defer the rest of the medical management the primary and other specialist For DVT prophylaxis On subcu heparin for 5000 units every 12 hours Time with Patient: Less than 30
--- NOTE | 2023-12-03 12:34 | EEG ---
ELECTROENCEPHALOGRAM REPORT CLINICAL HISTORY: This is an 88-year-old woman with altered mental status. The video EEG is obtained to evaluate for seizure epileptiform activity. RELEVANT MEDICATION: The patient is not on any antiepileptic drugs. EEG TYPE: A routine 21-channel EEG with video using the 10/20 electrode placement system. DESCRIPTION: Wakefulness and drowsiness are obtained. During awake state, the posterior- dominant rhythm consists of low to moderate voltage of 7 to 8 hertz activity that is well modulated, well sustained. There is no physiological stage 2 sleep architecture. There is no focal slowing. INTERICTAL AND ICTAL: None. ACTIVATION PROCEDURE: Photic stimulation did not evoke a posterior driving response. There is no abnormality during the photic stimulation. Hyperventilation is not performed. CLINICAL INTERPRETATION: This is an abnormal routine EEG. The background slowing is suggestive of mild encephalopathy. There is no focal slowing, epileptiform discharge, or seizure on the EEG. Clinical correlation is recommended. WESLEY / AISHWARYA: [id number] / MTDD
[2023-12-03] MEDS: ACETAMINOPHEN TAB 325 MG TAB PO PRN (12:47)
[2023-12-03] MEDS: CYANOCOBALAMIN 1,000 MCG/ML 1 ML VIAL IM ONE (12:50)
--- NOTE | 2023-12-03 13:09 | CA ---
Transthoracic Echo Report Name: Alison Franz Age: 88 Gender: F : 1935 Exam Date: 12/03/2023 09:55 Exam Location: [facility] Ht (in): 60 Wt (lb): 175 Ordering Physician: Carlos Castro MD Attending/Referring Phys: Lock Technician Lina Diaz RDCS Procedure CPT: Indications: stroke Cardiac Hx: Technical Quality: Fair Contrast 1: Total Dose (mL): Contrast 2: Total Dose (mL): MEASUREMENTS (Male / Female) Normal Values 2D ECHO LV Diastolic Diameter PLAX 3.9 cm 4.2 - 5.9 / 3.9 - 5.3 cm LV Systolic Diameter PLAX 1.7 cm IVS Diastolic Thickness 1.1 cm 0.6 - 1.0 / 0.6 - 0.9 cm LVPW Diastolic Thickness 1.2 cm 0.6 - 1.0 / 0.6 - 0.9 cm LV Relative Wall Thickness 0.6 RV Internal Dim ED PLAX 1.7 cm LVOT Diameter 2.0 cm LA Systolic Diameter LX 4.4 cm 3.0 - 4.0 / 2.7 - 3.8 cm LV Diastolic Volume MOD BP 46.5 cm??? 67 - 155 / 56 - 104 cm??? LV Systolic Volume MOD BP 17.7 cm??? 22 - 58 / 19 - 49 cm??? LV Ejection Fraction MOD BP 61.9 % >= 55 % LV Cardiac Index MOD BP 1570.3 cm???/min???m??? LV Diastolic Volume MOD 4C 54.5 cm??? LV Systolic Volume MOD 4C 18.9 cm??? LV Ejection Fraction MOD 4C 65.4 % LV Cardiac Index MOD 4C 1941.8 cm???/min???m??? LV Diastolic Length 4C 7.2 cm LV Systolic Length 4C 5.8 cm LV Diastolic Volume MOD 2C 37.7 cm??? LV Systolic Volume MOD 2C 16.3 cm??? LV Ejection Fraction MOD 2C 56.7 % LV Cardiac Index MOD 2C 1166.6 cm???/min???m??? LV Diastolic Length 2C 6.8 cm LV Systolic Length 2C 6.0 cm LA Volume 76.3 cm??? 18 - 58 / 22 - 52 cm??? LA Volume Index 40.8 cm???/m??? 16 - 28 cm???/m??? M-MODE Aortic Root Diameter MM 3.0 cm LA Systolic Diameter MM 3.4 cm LA Ao Ratio MM 1.1 AV Cusp Separation MM 1.1 cm DOPPLER AV Peak Velocity 248.9 cm/s AV Peak Gradient 24.8 mmHg AV Mean Velocity 199.2 cm/s AV Mean Gradient 16.6 mmHg AV Velocity Time Integral 41.4 cm AI Peak Velocity 273.6 cm/s AI Peak Gradient 29.9 mmHg AI Pressure Half Time 764.0 ms LVOT Peak Velocity 129.8 cm/s LVOT Peak Gradient 6.7 mmHg LVOT Velocity Time Integral 30.0 cm LVOT Stroke Volume 97.3 cm??? LVOT Stroke Volume Index 55.1 ml/m??? LVOT Cardiac Index 5303.5 cm???/min???m??? AV Area Cont Eq vti 2.4 cm??? AV Area Cont Eq pk 1.7 cm??? MV Area PHT 4.8 cm??? Mitral E Point Velocity 96.0 cm/s Mitral A Point Velocity 152.1 cm/s Mitral E to A Ratio 0.6 MV Deceleration Time 158.8 ms TR Peak Velocity 210.2 cm/s TR Peak Gradient 17.7 mmHg Right Ventricular Systolic Press 22.2 mmHg FINDINGS Left Ventricle Left ventricular ejection fraction is estimated at 65 %. Mildly increased septal wall thickness. Mildly increased posterior wall thickness. No obvious regional wall motion abnormalities. Left ventricular cavity size normal. Hyperdynamic left ventricular systolic function. Right Ventricle Normal right ventricular size and function. Right ventricular systolic pressure within normal limits. Right Atrium Mild right atrial dilatation. Left Atrium Moderately increased left atrial diameter. Severely increased left atrial volume. Mildly increased left atrial area. Mitral Valve Structurally normal mitral valve. Trace to mild mitral regurgitation. Aortic Valve Mild aortic stenosis with a peak gradient of 24 mmHg and a mean gradient of 16 mmHg. Trace to mild aortic regurgitation. Tricuspid Valve Structurally normal tricuspid valve. Mild tricuspid regurgitation. Pulmonic Valve Structurally normal pulmonic valve. Trace pulmonic regurgitation. Pericardium No pericardial or pleural effusion. Aorta Normal size aortic root and proximal ascending aorta. CONCLUSIONS Left ventricular ejection fraction 65% Mildly increased left ventricular wall thickness Moderately dilated left atrium Mild aortic stenosis Trace to mild aortic regurgitation Mild tricuspid regurgitation Previewed by: Dr. Nicko Esposito DO (Electronically Signed) Final Date: 03 December 2023 13:08
--- NOTE | 2023-12-03 16:14 | P.HPIM ---
History of Present Illness H&P Date: 12/03/23 Chief Complaint: Confused, found on the floor This is an 88-year-old female resident of [facility] with past medical history significant for CAD, diabetes mellitus, gastroesophageal reflux disease, hypertension, hyperlipidemia, osteoarthritis discovered by friend on the floor yesterday afternoon. Son reported he had last talked with his mom on Friday afternoon around 4 PM when she was doing well. Friend discovered patient on the floor as they were supposed to go out for dinner and states she was confused. Questioned patient why she was on the floor-patient reports I" do not know why I just did,"and softly laughs. Denies fall. States she has not done that before. Denies syncope, lightheadedness ,dizziness weakness, shortness of breath, motor strength loss, buckling of legs, chest pain, palpitations. Denies headache, denies blurred vision. Reports she did not use her roller walker yesterday. On admission blood pressure was 181/89, electrolytes and renal function within normal limits. Hemoglobin A1c 6.7 with glucose of 146. CK2 78, lactic acid 2.2, received fluids overnight with lactic acid within normal limits this morning. Patient became hypertensive again this morning, 205/94, post fluid resuscitation, received IV push hydralazine, Norvasc. Home medication metoprolol resumed. Afebrile, UA negative, WBC 12.9, 10.08.Brain CT reported age-related atrophic and chronic small vessel ischemic change. Since prior examination there are new areas of decreased attenuation within the left basal ganglia and anterior left mendoza radiata which may be chronic in nature. Chest x-ray reported correlate for mild volume overload. Evaluated by neurology with neuro workup initiated. Carotid ultrasound reported no hemodynamic stenosis. E cho pending. Troponin negative x 1, cholesterol 268, LDL 192, HDL 51.7, vitamin B12 239, folate 20.5. Review of Systems ROS Statement: Those systems with pertinent positive or pertinent negative responses have been documented in the HPI. ROS Other: All systems not noted in ROS Statement are negative. REVIEW OF SYSTEMS: CONSTITUTIONAL: Denies having any fevers chills or rigors. HEENT: No recent visual problems or hearing problems. Denied any sore throat. CARDIOVASCULAR: No chest pain, orthopnea, PND, no palpitations, no syncope. PULMONARY: no hemoptysis. GASTROINTESTINAL: No diarrhea, no nausea, no vomiting, no abdominal pain. NEUROLOGICAL: No focal weakness, slurred speech or headaches or blurring of vi veronika HEMATOLOGICAL: Denies any bleeding or petechiae. GENITOURINARY: Denies any burning micturition, frequency, or urgency. MUSCULOSKELETAL/RHEUMATOLOGICAL: Denies any joint pain, swelling, or any muscle pain. ENDOCRINE: Denies any polyuria or polydipsia. The rest of the 14-point review of systems is negative. Past Medical History Past Medical History: Coronary Artery Disease (CAD), Diabetes Mellitus, GERD/Reflux, Hyperlipidemia, Hypertension, Osteoarthritis (OA), Skin Disorder Additional Past Medical History / Comment(s): "TIA years ago", hx colitis, rash on legs, numbness in feet History of Any Multi-Drug Resistant Organisms: None Reported Past Surgical History: Heart Catheterization, Hysterectomy, Joint Replacement, Orthopedic Surgery, Tonsillectomy Additional Past Surgical History / Comment(s): left knee surgery, rt hip replacement, surgery for fx pelvis Past Anesthesia/Blood Transfusion Reactions: Motion Sickness Past Psychological History: Anxiety, Depression Smoking Status: Never smoker Past Alcohol Use History: Daily Past Drug Use History: None Reported - Past Family History Mother Family Medical History: No Reported History Medications and Allergies Home Medications Medication Instructions Recorded Confirmed Type Atorvastatin [Lipitor] 40 mg PO HS 01/26/15 12/02/23 History Citalopram Hydrobromide [CeleXA] 40 mg PO DAILY 09/24/20 12/02/23 History L.acidoph,Paracasei, B.lactis 1 cap PO DAILY 09/24/20 12/02/23 History [Probiotic] Metoprolol Succinate (ER) [Toprol 25 mg PO HS 09/24/20 12/02/23 History XL] Multivitamins, Thera [Multivitamin 1 tab PO DAILY 09/24/20 12/02/23 History (formulary)] Aspirin EC [Ecotrin Low Dose] 81 mg PO DAILY 12/02/23 12/02/23 History Clotrimazole [Clotrimazole AF] 1 applic TOPICAL DAILY 12/02/23 12/02/23 History Metoprolol Succinate (ER) [Toprol 50 mg PO DAILY 12/02/23 12/02/23 History XL] Mirabegron [Myrbetriq] 50 mg PO DAILY 12/02/23 12/02/23 History Triamcinolone 0.1% Cream [Kenalog 1 applicatio TOPICAL BID 12/02/23 12/02/23 History 0.1% Cream] amLODIPine [Norvasc] 2.5 mg PO DAILY #30 tablet 12/03/23 Rx Allergies Allergy/AdvReac Type Severity Reaction Status Date / Time codeine Allergy Unknown Verified 12/02/23 15:34 buspirone HCl [From BuSpar] AdvReac Nausea Verified 12/02/23 15:34 ciprofloxacin [From Cipro] AdvReac Nausea Verified 12/02/23 15:34 ciprofloxacin HCl AdvReac Nausea Verified 12/02/23 15:34 [From Cipro] hydrocodone AdvReac Nausea Verified 12/02/23 15:34 ondansetron HCl AdvReac Nausea Verified 12/02/23 15:34 [From Zofran (as hydrochloride)] oxycodone HCl [From Percocet] AdvReac Hallucinati Verified 12/02/23 15:34 ons trazodone AdvReac nightmares Verified 12/02/23 15:34 Physical Exam Vitals: Vital Signs Temp Pulse Pulse Resp BP BP Pulse Ox 12/03/23 06:24 98.2 F 84 15 205/94 96 12/02/23 23:38 79 18 146/77 97 12/02/23 19:42 98.7 F 98 20 146/72 97 12/02/23 16:34 101 H 18 151/74 97 12/02/23 14:00 91 18 155/70 12/02/23 13:00 18 171/93 12/02/23 12:30 85 18 181/89 89 L 12/02/23 12:10 98.5 F 89 18 181/89 94 L Intake and Output 12/02/23 12/03/23 12/03/23 22:59 06:59 14:59 Intake Total 1050 Output Total 270 Balance 780 Intake: IV 1050 Sodium Chloride 0.9% 1, 1050 000 ml @ 75 mls/hr IV . [id number] [facility] Rx#:[id number] Output: Urine 270 Other: Voiding Method Incontinent External Catheter GENERAL: Pleasant, elderly female, alert and oriented to person and place, sitt ing up on stretcher, no acute distress, cooperative HEENT: Pupils are round and equally reacting to light. EOMI. No scleral icterus. No conjunctival pallor. NECK: supple, no JVD CARDIOVASCULAR: S1 and S2 present. PULMONARY: Unlabored, equal air entry, essentially clear to auscultation, diminished bases ABDOMEN: Soft, nontender, nondistended, normoactive bowel sounds. No palpable organomegaly. EXTREMITIES: No cyanosis, clubbing, or pedal edema. Peripheral pulses felt. NEUROLOGICAL: Disoriented to time, follows simple commands. SKIN: No rashes. Results CBC & Chem 7: 12/03/23 06:59 12/03/23 06:59 Labs: Abnormal Lab Results - Last 24 Hours (Table) 12/02/23 12/02/23 12/02/23 Range/Units 12:20 12:20 12:20 WBC 12.9 H (3.8-10.6) k/uL Neutrophils # 11.2 H (1.3-7.7) k/uL APTT 21.7 L (22.0-30.0) sec Sodium 135 L (137-145) mmol/L Creatinine 0.51 L (0.52-1.04) mg/dL Glucose 166 H (74-99) mg/dL POC Glucose (mg/dL) (70-110) mg/dL Hemoglobin A1c (<=6.0) % Plasma Lactic Acid Alex (0.7-2.0) mmol/L AST 45 H (14-36) U/L Creatine Kinase 278 H (30-135) U/L Total Protein 8.3 H (6.3-8.2) g/dL Albumin 5.1 H (3.5-5.0) g/dL Cholesterol (0.00-200.00) mg/dL LDL Cholesterol, Calc (0.0-131.0) mg/dL Urine Protein (Negative) Urine Glucose (UA) (Negative) Urine Ketones (Negative) Urine Blood (Negative) Urine Bacteria (None) /hpf Urine Mucus (None) /hpf 12/02/23 12/02/23 12/02/23 Range/Units 12:20 12:20 12:20 WBC (3.8-10.6) k/uL Neutrophils # (1.3-7.7) k/uL APTT (22.0-30.0) sec Sodium (137-145) mmol/L Creatinine (0.52-1.04) mg/dL Glucose (74-99) mg/dL POC Glucose (mg/dL) (70-110) mg/dL Hemoglobin A1c 6.7 H (<=6.0) % Plasma Lactic Acid Alex 2.2 H* (0.7-2.0) mmol/L AST (14-36) U/L Creatine Kinase (30-135) U/L Total Protein (6.3-8.2) g/dL Albumin (3.5-5.0) g/dL Cholesterol 268.00 H (0.00-200.00) mg/dL LDL Cholesterol, Calc 192.1 H (0.0-131.0) mg/dL Urine Protein (Negative) Urine Glucose (UA) (Negative) Urine Ketones (Negative) Urine Blood (Negative) Urine Bacteria (None) /hpf Urine Mucus (None) /hpf 12/02/23 12/03/23 Range/Units 13:24 06:42 WBC (3.8-10.6) k/uL Neutrophils # (1.3-7.7) k/uL APTT (22.0-30.0) sec Sodium (137-145) mmol/L Creatinine (0.52-1.04) mg/dL Glucose (74-99) mg/dL POC Glucose (mg/dL) 127 H (70-110) mg/dL Hemoglobin A1c (<=6.0) % Plasma Lactic Acid Alex (0.7-2.0) mmol/L AST (14-36) U/L Creatine Kinase (30-135) U/L Total Protein (6.3-8.2) g/dL Albumin (3.5-5.0) g/dL Cholesterol (0.00-200.00) mg/dL LDL Cholesterol, Calc (0.0-131.0) mg/dL Urine Protein 2+ H (Negative) Urine Glucose (UA) 1+ H (Negative) Urine Ketones 1+ H (Negative) Urine Blood Small H (Negative) Urine Bacteria Rare H (None) /hpf Urine Mucus Rare H (None) /hpf Assessment and Plan Assessment: Confusion, acute metabolic encephalopathy, etiology unclear, ruling out acute, subacute CVA Hypertensive urgency, in a patient with history of hypertension Acute rhabdomyolysis, discovered on floor, confused. Patient denies fall Dehydration Hyperlipidemia Diabetes mellitus type 2 Osteoarthritis, multiple joints History of TIA Anxiety, depression Plan: Continue on current medication resume ,monitoring and symptomatic treatment. Maintain aspirin, Plavix and statin. Continue on telemetry. neuro workup in progress including brain MRI, EEG. PT/OT/ST consults in place. DVT prophylaxis with subcu heparin in place. PPI in place for for GI prophylaxis. The impression and plan of care has been dictated as directed. : I performed a history and examination of this patient, discussed the same with the dictator. I agree with the dictator's note ,documented as a scribe. Any additional findings or plans will be noted.
[2023-12-03 16:43] LABS: Glucose,Whole Blood 136 mg/dL (70-110)
--- NOTE | 2023-12-03 17:03 | MR ---
INDICATION: Patient age:Female; 88 years old; Reason for study: stroke; PHH. COMPARISON: CT brain 12/02/2023, 08/26/2020. TECHNIQUE: Multi planar, multi sequence imaging was performed through the brain before and after the uneventful administration of 8 mL of Gadavist intravenously. FINDINGS: There is restricted diffusion identified within the left caudate nucleus involving the head and body with additional extension into the coronal radiata and putamen. There is corresponding low intensity on ADC map and T2/FLAIR hyperintensity. The marroquin-white junctions, ventricular system, basal cisterns appear unremarkable. Cavum septum pelluc idum incidentally noted. Mild cerebral atrophy which is age-appropriate. Intracranial arterial flow v oids are maintained. Midline structures show no abnormality. Confluent areas of high T2/FLAIR signal intensity are seen within the periventricular and subcortical white matter. Additional regions identi fied within the midbrain and kedar. There is corresponding low T1 signal. The susceptibility weighted images is a single focus of microhemorrhage in the left basal ganglia. Af ter administration of gadolinium, no abnormal enhancement is seen. The bone marrow signal is within normal limits. Bilateral aphakia. There is somewhat tortuous appeara nce of the bilateral optic nerves. Right sphenoid sinus opacification with debris. The remaining para nasal sinuses are clear. IMPRESSION: 1. Acute/subacute CVA involving the left basal ganglia and mendoza radiata. 2. Confluent nonspecific white matter changes involving the bilateral periventricular and subcortical cerebral white matter with additional regions in the midbrain and kedar. Etiologies include demyelina ting disease such as multiple sclerosis versus vascular disease versus other. No abnormal contrast en hancement.
[2023-12-03] MEDS ORDERED: DEXTROSE 50% SYRINGE 50 ML IVP PRN ×2 (17:19)
[2023-12-03] MEDS: INSULIN ASPART (NovoLOG) 100 UNIT/ML VIAL SQ SCH (17:21)
[2023-12-03 20:04] LABS: Glucose,Whole Blood 119 mg/dL (70-110)
[2023-12-03] MEDS: METOPROLOL SUCCINATE (ER) 25 MG TAB.ER.24H PO SCH (20:13)
[2023-12-03] MEDS ORDERED: ATORVASTATIN 40 MG TAB PO SCH (21:00)
[2023-12-04 06:02] LABS: Glucose,Whole Blood 113 mg/dL (70-110)
[2023-12-04 08:10] LABS: African American GFR (CKD) >90 (>60 ml/min/1.73 sqM); Anion Gap 3 mmol/L; Basophils % (A) 0 %; Blood Urea Nitrogen 12 mg/dL (7-17); Calcium 8.9 mg/dL (8.4-10.2); Carbon Dioxide 27 mmol/L (22-30); Chloride 107 mmol/L (98-107); Eosinophils # (A) 0.2 k/uL (0-0.7); Eosinophils % (A) 3 %; Glucose 109 mg/dL (74-99); HCT 37.9 % (34.0-46.0); HGB 12.2 gm/dL (11.4-16.0); Lymphocytes # (A) 2.5 k/uL (1.0-4.8); Lymphocytes % (A) 30 %; MCH 29.5 pg (25.0-35.0); MCHC 32.1 g/dL (31.0-37.0); MCV 91.9 fL (80.0-100.0); Mean Platelet Volume 8.4; Monocytes # (A) 0.6 k/uL (0-1.0); Monocytes % (A) 8 %; Neutrophils # (A) 4.8 k/uL (1.3-7.7); Neutrophils % (A) 58 %; Non-African American GFR(CKD) 79 (>60 ml/min/1.73 sqM); Platelet Count 177 k/uL (150-450); Potassium 3.6 mmol/L (3.5-5.1); RBC 4.12 m/uL (3.80-5.40); RDW 12.7 % (11.5-15.5); Sodium 137 mmol/L (137-145); WBC 8.4 k/uL (3.8-10.6)
[2023-12-04] MEDS: CYANOCOBALAMIN 500 MCG TAB PO SCH (08:24)
[2023-12-04 11:20] LABS: Glucose,Whole Blood 109 mg/dL (70-110)
--- NOTE | 2023-12-04 16:48 | P.PN ---
Subjective Progress Note Date: 12/04/23 I am following up with the patient and she feels she is about the same. Denies of any new neurological issues. Objective - Vital Signs Vital signs: Vital Signs Temp 98.1 F 12/04/23 15:40 Pulse 59 L 12/04/23 15:40 Resp 18 12/04/23 15:40 BP 153/79 12/04/23 15:40 Pulse Ox 93 L 12/04/23 15:40 FiO2 Intake & Output 12/03/23 12/04/23 12/04/23 18:59 06:59 18:59 Intake Total 128 354 Output Total 640 Balance 128 -640 354 Weight 79.379 kg Intake: IV 10 Invasive Line 2 10 Oral 118 354 Output: Urine 640 Other: Voiding Method Incontinent Incontinent Incontinent External Catheter External Catheter External Catheter - Exam General: Lying in bed and is not in acute distress. Neuro: Limited. Patient is mildly drowsy but is awake both voice. She is oriented to self and place. She is following few simple commands. Is able to name some objects correctly such as watch and glasses appear The pupils are round equal reactive to light. Visual dewey are full to confrontation. No facial weakness. no dysarthria. Motor strength is hard to assess individual muscle strength because of her cooperation but she was able to lift all extremity above gravity and from limitation for of examination it appeared nonfocal. Normal tone and bulk Sensory is normal to touch throughout Cerebellar: Is normal [id number] Reflexes deferred because of her cooperation Some of the workup during this hospital visit consisted of: CK level is 278 Panel is triglyceride 121, cholesterol is 268, LDL is 192 and HDL is 51. Vitamin B12 is 239 Serum folate is 20.50 TSH is 2.20 Hemoglobin A1c is 6.7. Urinalysis is negative for underlying urinary tract infection CT of the head is reported as age-related atrophy and chronic small vessel ischemic change. Since prior examination there are new areas of decreased attenuation within the left basal ganglia and anterior left mendoza radiata which may be chronic in nature. Correlate clinically. History reviewed the CT of the head and I felt the changes reported on the left basal ganglia mendoza radiata seems more subacute to chronic but more subacute in my opinion. Carotid duplex is reported as less than 50% stenosis of bilateral carotid bifurcation. MRI of the brain is reported as acute/subacute CVA involving the left basal ganglia and coronary artery. Confluent nonspecific white matter changes involving the bilateral periventricular subcortical cerebral white matter with additional region in the midbrain and kedar. Etiologies include D-mine disease such as multiple sclerosis versus vascular disease versus other none abnormal contrast-enhancement. I personally reviewed the MRI and I feel it is more subacute stroke especially with findings seen on the CT of the head. Regarding the nonspecific white matter that could be due to the chronic microvascular disease and does not appear demyelinating. Routine EEG is abnormal. The background slowing suggestive of mild enc ephalopathy. There is no focal slowing, [employer] discharge or seizure on the EEG 2D echo was reported as left ventricular ejection fraction of 65%. Moderately dilated left atrium. Mild aortic stenosis. - Labs CBC & Chem 7: 12/04/23 07:12 12/04/23 07:12 Labs: Abnormal Lab Results - Last 24 Hours (Table) 12/03/23 12/03/23 12/04/23 Range/Units 16:41 20:02 06:01 Glucose (74-99) mg/dL POC Glucose (mg/dL) 136 H 119 H 113 H (70-110) mg/dL Hemoglobin A1c (<=6.0) % 12/04/23 12/04/23 Range/Units 07:12 07:12 Glucose 109 H (74-99) mg/dL POC Glucose (mg/dL) (70-110) mg/dL Hemoglobin A1c 6.7 H (<=6.0) % Assessment and Plan Assessment: This is an 88-year-old woman with history of TIA about 8 day ago, diabetes mellitus who was found down by her friend on the floor in her apartment. Patient resides in an independent living facility. Patient stated that he talked her last this past Friday and she sounded she was doing well and unknown last normal state. CT of the head left basal ganglia and mendoza radiata are new compared to prior CT but appears chronic. Upon reviewing the images I felt things on the left basal ganglia and mendoza radiata seems more subacute. Subacute ischemic stroke (over left basal ganglia/mendoza radiata) Changes are seen on the CT as well as MRI. Etiology of stroke likely due to chronic small vessel disease (DM, hx of TIA, hypertension, age, sex). Hypertensive urgency Very low normal vitamin B12 239 Encephalopathy likely due to above Diabetes mellitus and hemoglobin A1c 6.7 History of TIA about 8 years ago the patient is on aspirin 81 mg Plan: I restarted her home dose of aspirin 81 mg and in addition I started the patient on Plavix 75 mg daily. Recommend dual antiplatelet for 21 days and after 21 days stop aspirin but continue Plavix from neurologic perspective. I started the patient on Lipitor 40 mg nightly for secondary stroke prophylaxis With very low normal vitamin B12 I gave the patient 1 time 1000 mcg IM and after that p.o. daily. Neurochecks Cardiac monitoring. Recommend 30-day event monitor for 30 days. PT OT and FOOD BEVERAGE ATTENDANT are consulted Will defer the rest of the medical management the primary and other specialist For DVT prophylaxis On subcu heparin for 5000 units every 12 hours Upon discharge recommend the patient to follow-up with a neurologist as an outpatient within 2 to 3 weeks Otherwise no additional neurological workup. Will sign off. Please reconsult if needed. Time with Patient: Less than 30
[2023-12-04 17:00] LABS: Glucose,Whole Blood 115 mg/dL (70-110)
[2023-12-04 19:58] LABS: Glucose,Whole Blood 107 mg/dL (70-110)
[2023-12-05 06:14] LABS: Glucose,Whole Blood 112 mg/dL (70-110)
--- NOTE | 2023-12-05 07:50 | P.PN ---
Subjective Progress Note Date: 12/04/23 She is feeling well today, denies headache, vision change, nausea. She has not been out of bed. She does feel weak in general. Her MRI is reviewed and does suggest acute/subacute CVA of basal ganglia Objective - Vital Signs Vital signs: Vital Signs Temp 98.1 F 12/04/23 20:00 Pulse 65 12/05/23 04:00 Resp 16 12/05/23 04:00 BP 179/80 12/05/23 04:00 Pulse Ox 95 12/05/23 04:00 FiO2 Intake & Output 12/04/23 12/05/23 12/05/23 18:59 06:59 18:59 Intake Total 354 Output Total 1550 Balance 354 -1550 Weight 68.8 kg Intake: Oral 354 Output: Urine 1550 Other: Voiding Method Incontinent Incontinent External Catheter External Catheter - Exam Gen: elderly female in NAD CV: RRR, no murmur Lungs: CTAB Neuro: AAOx3 - Labs CBC & Chem 7: 12/04/23 07:12 12/04/23 07:12 Labs: Abnormal Lab Results - Last 24 Hours (Table) 12/04/23 12/04/23 12/04/23 Range/Units 07:12 07:12 16:59 Glucose 109 H (74-99) mg/dL POC Glucose (mg/dL) 115 H (70-110) mg/dL Hemoglobin A1c 6.7 H (<=6.0) % 12/05/23 Range/Units 06:12 Glucose (74-99) mg/dL POC Glucose (mg/dL) 112 H (70-110) mg/dL Hemoglobin A1c (<=6.0) % Assessment and Plan Plan: Continue with ASA, plavix, lipitor per Neurology. PT, OT to eval. Discharge planning
--- NOTE | 2023-12-05 07:53 | P.DS ---
Providers Date of admission: 12/04/23 09:14 Expected date of discharge: 12/05/23 Attending physician: Ashish Haines MD Consults: 12/02/23 14:52 Consult Physician Routine Consulting Provider: Carlos Castro Consult Reason/Comments: weakness Do you want consulting provider notified?: Yes Primary care physician: [facility] Course: This is an 88-year-old female resident of [facility] with past medical history significant for CAD, diabetes mellitus, gastroesophageal reflux disease, hypertension, hyperlipidemia, osteoarthritis discovered by friend on the floor yesterday afternoon. Son reported he had last talked with his mom on Friday afternoon around 4 PM when she was doing well. Friend discovered patient on the floor as they were supposed to go out for dinner and states she was confused. Questioned patient why she was on the floor-patient reports I" do not know why I just did,"and softly laughs. Denies fall. States she has not done that before. Denies syncope, lightheadedness ,dizziness weakness, shortness of breath, motor strength loss, buckling of legs, chest pain, palpitations. Denies headache, denies blurred vision. Reports she did not use her roller walker yesterday. On admission blood pressure was 181/89, electrolytes and renal function within normal limits. Hemoglobin A1c 6.7 with glucose of 146. CK2 78, lactic acid 2.2, received fluids overnight with lactic acid within normal limits this morning. Patient became hypertensive again this morning, 205/94, post fluid resuscitation, received IV push hydralazine, Norvasc. Home medication metoprolol resumed. Afebrile, UA negative, WBC 12.9, 10.08.Brain CT reported age-related atrophic and chronic small vessel ischemic change. Since prior examination there are new areas of decreased attenuation within the left basal ganglia and anterior left mendoza radiata which may be chronic in nature. Chest x-ray reported correlate for mild volume overload. Evaluated by neurology with neuro workup initiated. Carotid ultrasound reported no hemodynamic stenosis. Echo pending. Troponin negative x 1, cholesterol 268, LDL 192, HDL 51.7, vitamin B12 239, folate 20.5. Pt underwent MRI of her brain which again suggested ischemic changes in the basal ganglia and mendoza radiata. She was recommended to start plavix and continue on ASA and lipitor. Pt evaluted by PT and OT and recommended subacute rehab for continued strengthening and balance. Pt discharged in stable condition and recommended to follow up with her PCP as an outpatient. Plan - Discharge Summary Discharge Rx Participant: No New Discharge Prescriptions: New amLODIPine [Norvasc] 2.5 mg PO DAILY #30 tablet Clopidogrel [Plavix] 75 mg PO DAILY #30 tab Continue Atorvastatin [Lipitor] 40 mg PO HS Multivitamins, Thera [Multivitamin (formulary)] 1 tab PO DAILY Metoprolol Succinate (ER) [Toprol XL] 25 mg PO HS Metoprolol Succinate (ER) [Toprol XL] 50 mg PO DAILY Clotrimazole [Clotrimazole AF] 1 applic TOPICAL DAILY L.acidoph,Paracasei, B.lactis [Probiotic] 1 cap PO DAILY Citalopram Hydrobromide [CeleXA] 40 mg PO DAILY Mirabegron [Myrbetriq] 50 mg PO DAILY Aspirin EC [Ecotrin Low Dose] 81 mg PO DAILY Triamcinolone 0.1% Cream [Kenalog 0.1% Cream] 1 applicatio TOPICAL BID Discharge Medication List Atorvastatin [Lipitor] 40 mg PO HS 01/26/15 [History] Citalopram Hydrobromide [CeleXA] 40 mg PO DAILY 09/24/20 [History] L.acidoph,Paracasei, B.lactis [Probiotic] 1 cap PO DAILY 09/24/20 [History] Metoprolol Succinate (ER) [Toprol XL] 25 mg PO HS 09/24/20 [History] Multivitamins, Thera [Multivitamin (formulary)] 1 tab PO DAILY 09/24/20 [History] Aspirin EC [Ecotrin Low Dose] 81 mg PO DAILY 12/02/23 [History] Clotrimazole [Clotrimazole AF] 1 applic TOPICAL DAILY 12/02/23 [History] Metoprolol Succinate (ER) [Toprol XL] 50 mg PO DAILY 12/02/23 [History] Mirabegron [Myrbetriq] 50 mg PO DAILY 12/02/23 [History] Triamcinolone 0.1% Cream [Kenalog 0.1% Cream] 1 applicatio TOPICAL BID 12/02/23 [History] amLODIPine [Norvasc] 2.5 mg PO DAILY #30 tablet 12/03/23 [Rx] Clopidogrel [Plavix] 75 mg PO DAILY #30 tab 12/05/23 [Rx] Follow up Appointment(s)/Referral(s): Ashish Haines MD [STAFF PHYSICIAN] - 1 Week Discharge Disposition: TRANSFER TO SNF/ECF
[2023-12-05 16:23] LABS: Glucose,Whole Blood 114 mg/dL (70-110)
[2023-12-05 19:58] LABS: Glucose,Whole Blood 168 mg/dL (70-110)
[2023-12-06 06:26] LABS: Glucose,Whole Blood 119 mg/dL (70-110)
[2023-12-06 11:48] LABS: Glucose,Whole Blood 138 mg/dL (70-110)
[2023-12-06] MEDS: amLODIPine 2.5 MG TAB PO SCH (12:48)
--- NOTE | 2023-12-06 15:17 | P.PN ---
Subjective Progress Note Date: 12/06/23 Interval History: This is an 88-year-old female resident of [facility] with past medical history significant for CAD, diabetes mellitus, gastroesophageal reflux disease, hypertension, hyperlipidemia, osteoarthritis discovered by friend on the floor yesterday afternoon. Son reported he had last talked with his mom on Friday afternoon around 4 PM when she was doing well. Friend discovered patient on the floor as they were supposed to go out for dinner and states she was confused. Questioned patient why she was on the floor-patient reports I" do not know why I just did,"and softly laughs. Denies fall. States she has not done that before. Denies syncope, lightheadedness ,dizziness weakness, shortness of breath, motor strength loss, buckling of legs, chest pain, palpitations. Denies headache, denies blurred vision. Reports she did not use her roller walker yesterday. On admission blood pressure was 181/89, electrolytes and renal function within normal limits. Hemoglobin A1c 6.7 with glucose of 146. CK2 78, lactic acid 2.2, received fluids overnight with lactic acid within normal limits this morning. Patient became hypertensive again this morning, 205/94, post fluid resuscitation, received IV push hydralazine, Norvasc. Home medication metoprolol resumed. Afebrile, UA negative, WBC 12.9, 10.08.Brain CT reported age-related atrophic and chronic small vessel ischemic change. Since prior examination there are new areas of decreased attenuation within the left basal ganglia and anterior left mendoza radiata which may be chronic in nature. Chest x-ray reported correlate for mild volume overload. Evaluated by neurology with neuro workup initiated. Carotid ultrasound reported no hemodynamic stenosis. Echo pending. Troponin negative x 1, cholesterol 268, LDL 192, HDL 51.7, vitamin B12 239, folate 20.5. Pt underwent MRI of her brain which again suggested ischemic changes in the basal ganglia and mendoza radiata. She was recommended to start plavix and continue on ASA and lipitor. Pt evaluted by PT and OT and recommended subacute rehab for continued strengthening and balance. 12/05--1 stable exam today. Son at bedside. Patient pleasantly confused, per son patient is at baseline. Following commands. Blood pressure still elevated, added Norvasc. REVIEW OF SYSTEMS: CONSTITUTIONAL: No fever, no malaise,. CARDIOVASCULAR: No chest pain, no palpitations, no syncope. PULMONARY: No shortness of breath, no cough, GASTROINTESTINAL: No diarrhea, no nausea, no vomiting, no abdominal pain. NEUROLOGICAL: No headaches, no weakness, PHYSICAL EXAMINATION: GENERAL: The patient is alert and oriented x1, not in any acute distress. Well developed, well nourished. HEENT: Pupils are round and equally reacting to light. EOMI. No scleral icterus. No conjunctival pallor. Normocephalic, atraumatic. No pharyngeal erythema. No thyromegaly. CARDIOVASCULAR: S1 and S2 present. No murmurs, rubs, or gallops. PULMONARY: Chest is clear to auscultation, no wheezing or crackles. ABDOMEN: Soft, nontender, nondistended, normoactive bowel sounds. No palpable organomegaly. MUSCULOSKELETAL: No joint swelling or deformity. EXTREMITIES: No cyanosis, clubbing, or pedal edema. NEUROLOGICAL: Gross neurological examination did not reveal any focal deficits. SKIN: No rashes. Assessment and plan Subacute ischemic stroke: Acute metabolic encephalopathy: History of dementia: History of TIA about 8 years ago: CT scan and MRI showed left basal ganglia/mendoza radiator subacute ischemic stroke. Continue aspirin indefinitely, Plavix for 21 days. Statin Blood pressure control Glycemic control Monitor with neurochecks Telemetry 30-day event monitor at discharge PT/OT/GREEN BUILDING ARCHITECT consulted DVT prophylaxis Awaiting placement to subacute rehab Outpatient follow-up with neurology Hypertension Continue metoprolol Added Norvasc Monitor blood pressure. Dictation was produced using [employer] dictation software. please excuse any grammatical, word or spelling errors. Objective - Vital Signs Vital signs: Vital Signs Temp 97.4 F L 12/06/23 11:19 Pulse 60 12/06/23 11:19 Resp 17 12/06/23 11:19 BP 166/74 12/06/23 11:19 Pulse Ox 94 L 12/06/23 11:19 FiO2 Intake & Output 12/05/23 12/06/23 12/06/23 18:59 06:59 18:59 Intake Total 776 236 Output Total 1250 900 600 Balance -413 -900 -223 Intake: Oral 776 236 Output: Urine 1250 900 600 Other: Voiding Method Incontinent Incontinent External Catheter External Catheter # Voids 2 - Labs CBC & Chem 7: 07/18/24 07:12 12/04/23 07:12 Labs: Abnormal Lab Results - Last 24 Hours (Table) 12/05/23 12/05/23 12/06/23 Range/Units 16:21 19:56 06:24 POC Glucose (mg/dL) 114 H 168 H 119 H (70-110) mg/dL 12/06/23 Range/Units 11:46 POC Glucose (mg/dL) 138 H (70-110) mg/dL
[2023-12-06 16:27] LABS: Glucose,Whole Blood 115 mg/dL (70-110)
[2023-12-06 20:27] LABS: Glucose,Whole Blood 171 mg/dL (70-110)
[2023-12-07 05:56] LABS: Glucose,Whole Blood 125 mg/dL (70-110)
[2023-12-07 08:52] VITALS: RESP 18
[2023-12-07 11:21] LABS: Glucose,Whole Blood 139 mg/dL (70-110)
[2023-12-07] MEDS: amLODIPine 5 MG TAB PO STA (13:03)
--- NOTE | 2023-12-07 14:24 | P.PN ---
Subjective Progress Note Date: 12/07/23 Interval History: This is an 88-year-old female resident of [facility] with past medical history significant for CAD, diabetes mellitus, gastroesophageal reflux disease, hypertension, hyperlipidemia, osteoarthritis discovered by friend on the floor yesterday afternoon. Son reported he had last talked with his mom on Friday afternoon around 4 PM when she was doing well. Friend discovered patient on the floor as they were supposed to go out for dinner and states she was confused. Questioned patient why she was on the floor-patient reports I" do not know why I just did,"and softly laughs. Denies fall. States she has not done that before. Denies syncope, lightheadedness ,dizziness weakness, shortness of breath, motor strength loss, buckling of legs, chest pain, palpitations. Denies headache, denies blurred vision. Reports she did not use her roller walker yesterday. On admission blood pressure was 181/89, electrolytes and renal function within normal limits. Hemoglobin A1c 6.7 with glucose of 146. CK2 78, lactic acid 2.2, received fluids overnight with lactic acid within normal limits this morning. Patient became hypertensive again this morning, 205/94, post fluid resuscitation, received IV push hydralazine, Norvasc. Home medication metoprolol resumed. Afebrile, UA negative, WBC 12.9, 10.08.Brain CT reported age-related atrophic and chronic small vessel ischemic change. Since prior examination there are new areas of decreased attenuation within the left basal ganglia and anterior left mendoza radiata which may be chronic in nature. Chest x-ray reported correlate for mild volume overload. Evaluated by neurology with neuro workup initiated. Carotid ultrasound reported no hemodynamic stenosis. Echo pending. Troponin negative x 1, cholesterol 268, LDL 192, HDL 51.7, vitamin B12 239, folate 20.5. Pt underwent MRI of her brain which again suggested ischemic changes in the basal ganglia and mendoza radiata. She was recommended to start plavix and continue on ASA and lipitor. Pt evaluted by PT and OT and recommended subacute rehab for continued strengthening and balance. 12/05--1 stable exam today. Son at bedside. Patient pleasantly confused, per son patient is at baseline. Following commands. Blood pressure still elevated, added Norvasc. 12/06--patient was seen and examined today. No issues overnight. Pleasantly confused at baseline. Following commands. Blood pressure still elevated, increase Norvasc dose. REVIEW OF SYSTEMS: CONSTITUTIONAL: No fever, no malaise,. CARDIOVASCULAR: No chest pain, no palpitations, no syncope. PULMONARY: No shortness of breath, no cough, GASTROINTESTINAL: No diarrhea, no nausea, no vomiting, no abdominal pain. NEUROLOGICAL: No headaches, no weakness, PHYSICAL EXAMINATION: GENERAL: The patient is alert and oriented x1, not in any acute distress. Well developed, well nourished. HEENT: Pupils are round and equally reacting to light. EOMI. No scleral icterus. No conjunctival pallor. Normocephalic, atraumatic. No pharyngeal erythema. No thyromegaly. CARDIOVASCULAR: S1 and S2 present. No murmurs, rubs, or gallops. PULMONARY: Chest is clear to auscultation, no wheezing or crackles. ABDOMEN: Soft, nontender, nondistended, normoactive bowel sounds. No palpable organomegaly. MUSCULOSKELETAL: No joint swelling or deformity. EXTREMITIES: No cyanosis, clubbing, or pedal edema. NEUROLOGICAL: Gross neurological examination did not reveal any focal deficits. SKIN: No rashes. Assessment and plan Subacute ischemic stroke: Acute metabolic encephalopathy: History of dementia: History of TIA about 8 years ago: CT scan and MRI showed left basal ganglia/mendoza radiator subacute ischemic stroke. Continue aspirin indefinitely, Plavix for 21 days. Statin Blood pressure control Glycemic control Monitor with neurochecks Telemetry 30-day event monitor at discharge PT/OT/MATTE CUTTER consulted DVT prophylaxis Awaiting placement to subacute rehab Outpatient follow-up with neurology Hypertension Continue metoprolol Added Norvasc Monitor blood pressure. Disposition: Subacute rehab, awaiting placement. Dictation was produced using [employer] dictation software. please excuse any grammatical, word or spelling errors. Objective - Vital Signs Vital signs: Vital Signs Temp 98.2 F 12/07/23 08:15 Pulse 65 12/07/23 08:15 Resp 18 12/07/23 08:15 BP 153/73 12/07/23 08:15 Pulse Ox 93 L 12/07/23 08:15 FiO2 Intake & Output 12/06/23 12/07/23 12/07/23 18:59 06:59 18:59 Intake Total 354 240 Output Total 1150 1200 Balance -796 -510 Weight 64.7 kg Intake: Oral 354 240 Output: Urine 1150 1200 Other: Voiding Method Incontinent Incontinent Incontinent External Catheter External Catheter External Catheter - Labs CBC & Chem 7: 12/04/23 07:12 12/04/23 07:12 Labs: Abnormal Lab Results - Last 24 Hours (Table) 12/06/23 12/06/23 12/07/23 Range/Units 16:25 20:26 05:55 POC Glucose (mg/dL) 115 H 171 H 125 H (70-110) mg/dL 12/07/23 Range/Units 11:19 POC Glucose (mg/dL) 139 H (70-110) mg/dL
[2023-12-07 16:42] LABS: Glucose,Whole Blood 129 mg/dL (70-110)
[2023-12-07 19:51] LABS: Glucose,Whole Blood 179 mg/dL (70-110)
[2023-12-07 20:36] VITALS: TEMP 98.5
[2023-12-07 23:30] VITALS: PULSE 65
[2023-12-08 05:48] LABS: Glucose,Whole Blood 135 mg/dL (70-110)
[2023-12-08 08:16] LABS: Basophils % (A) 0 %; Eosinophils # (A) 0.1 k/uL (0-0.7); Eosinophils % (A) 2 %; HCT 37.9 % (34.0-46.0); HGB 12.4 gm/dL (11.4-16.0); Lymphocytes # (A) 2.3 k/uL (1.0-4.8); Lymphocytes % (A) 26 %; MCH 29.5 pg (25.0-35.0); MCHC 32.7 g/dL (31.0-37.0); MCV 90.2 fL (80.0-100.0); Mean Platelet Volume 8.5; Monocytes # (A) 0.6 k/uL (0-1.0); Monocytes % (A) 7 %; Neutrophils # (A) 5.7 k/uL (1.3-7.7); Neutrophils % (A) 64 %; Platelet Count 188 k/uL (150-450); RBC 4.21 m/uL (3.80-5.40); RDW 12.3 % (11.5-15.5); WBC 8.9 k/uL (3.8-10.6)
[2023-12-08 08:23] LABS: African American GFR (CKD) >90 (>60 ml/min/1.73 sqM); Anion Gap 6 mmol/L; Blood Urea Nitrogen 11 mg/dL (7-17); Calcium 8.9 mg/dL (8.4-10.2); Carbon Dioxide 25 mmol/L (22-30); Chloride 104 mmol/L (98-107); Glucose 120 mg/dL (74-99); Non-African American GFR(CKD) 79 (>60 ml/min/1.73 sqM); Potassium 3.9 mmol/L (3.5-5.1); Sodium 135 mmol/L (137-145)
[2023-12-08] MEDS: amLODIPine 10 MG TAB PO SCH (09:16)
[2023-12-08 10:49] VITALS: BP 164/75
[2023-12-08 11:19] LABS: Glucose,Whole Blood 125 mg/dL (70-110)
== END 2023-12-08 14:45 | DRG 64 ==
LOC: EC 12:04 → 6NMEDSUR 14:52 → 3SCARD 12-03 07:01 → OBSVTOIN 12-04 09:14
PROVIDERS: ADMIT Family Medicine; ATTEND Family Medicine
DX: I63.9 Cerebral infarction, unspecified (principal); G93.41 Metabolic encephalopathy; F03.93 Unspecified dementia, unspecified severity, with mood disturbance; F03.94 Unspecified dementia, unspecified severity, with anxiety; M62.82 Rhabdomyolysis; E11.9 Type 2 diabetes mellitus without complications; E78.5 Hyperlipidemia, unspecified; E86.0 Dehydration; F32.A Depression, unspecified; I10 Essential (primary) hypertension; I16.0 Hypertensive urgency; I25.10 Atherosclerotic heart disease of native coronary artery without angina pectoris; M15.9 Polyosteoarthritis, unspecified; Z96.641 Presence of right artificial hip joint; Z79.82 Long term (current) use of aspirin; Z79.84 Long term (current) use of oral hypoglycemic drugs; Z79.899 Other long term (current) drug therapy; Z86.73 Personal history of transient ischemic attack (TIA), and cerebral infarction without residual deficits; Z90.710 Acquired absence of both cervix and uterus; Z88.5 Allergy status to narcotic agent; Z88.8 Allergy status to other drugs, medicaments and biological substances
CPT/HCPCS: 36415; 70450; 70553; 71046; 80048; 80053; 80061; 81001; 82550; 82607; 82746; 83036; 83605; 83735; 84443; 84484; 85025; 85610; 85730; 93005; 93270; 93306; 93880; 94760; 95816; 96361; 96372; 96374; 96375; 99285

== ENCOUNTER 2023-12-17 17:37 | Emergency (ER) | payer MEDICARE, BC ==
[2023-12-17 17:55] VITALS: TEMP 98.4
--- NOTE | 2023-12-17 18:00 | ED ---
General Adult HPI - General Chief complaint: Fall Stated complaint: fall, head injury Time Seen by Provider: 12/17/23 17:42 Source: patient, EMS, RN notes reviewed Mode of arrival: EMS Limitations: altered mental status - History of Present Illness Initial comments: Patient is an 88-year-old female present to the emergency department following a fall. Incident occurred prior to arrival. Patient states that she tripped. Patient denies syncope. Patient denies loss of consciousness. Patient only has mild discomfort of her upper face. Patient denies any neck or back pain. No chest pain or dyspnea. No abdominal pain. Patient per history is on Plavix. - Related Data Home Medications Medication Instructions Recorded Confirmed Atorvastatin [Lipitor] 40 mg PO HS 01/26/15 12/02/23 Citalopram Hydrobromide [CeleXA] 40 mg PO DAILY 09/24/20 12/02/23 L.acidoph,Ellyn Skinner.lactis 1 cap PO DAILY 09/24/20 12/02/23 [Probiotic] Metoprolol Succinate (ER) [Toprol 25 mg PO HS 09/24/20 12/02/23 XL] Multivitamins, Thera [Multivitamin 1 tab PO DAILY 09/24/20 12/02/23 (formulary)] Aspirin EC [Ecotrin Low Dose] 81 mg PO DAILY 12/02/23 12/02/23 Clotrimazole [Clotrimazole AF] 1 applic TOPICAL DAILY 12/02/23 12/02/23 Metoprolol Succinate (ER) [Toprol 50 mg PO DAILY 12/02/23 12/02/23 XL] Mirabegron [Myrbetriq] 50 mg PO DAILY 12/02/23 12/02/23 Triamcinolone 0.1% Cream [Kenalog 1 applicatio TOPICAL BID 12/02/23 12/02/23 0.1% Cream] Previous Rx's Medication Instructions Recorded Clopidogrel [Plavix] 75 mg PO DAILY #30 tab 12/05/23 Acetaminophen Tab [Tylenol] 650 mg PO Q6HR PRN tab 12/08/23 INSULIN LISPRO (HumaLOG) [humaLOG] 0 unit SQ ACHS #10 ml 12/08/23 amLODIPine [Norvasc] 5 mg PO DAILY tab 12/08/23 Allergies Allergy/AdvReac Type Severity Reaction Status Date / Time codeine Allergy Unknown Verified 12/17/23 17:56 buspirone HCl [From BuSpar] AdvReac Nausea Verified 12/17/23 17:56 ciprofloxacin [From Cipro] AdvReac Nausea Verified 12/17/23 17:56 ciprofloxacin HCl AdvReac Nausea Verified 12/17/23 17:56 [From Cipro] hydrocodone AdvReac Nausea Verified 12/17/23 17:56 ondansetron HCl AdvReac Nausea Verified 12/17/23 17:56 [From Zofran (as hydrochloride)] oxycodone HCl [From Percocet] AdvReac Hallucinati Verified 12/17/23 17:56 ons trazodone AdvReac nightmares Verified 12/17/23 17:56 Review of Systems ROS Statement: Those systems with pertinent positive or pertinent negative responses have been documented in the HPI. ROS Other: All systems not noted in ROS Statement are negative. Constitutional: Denies: fever Eyes: Denies: eye pain ENT: Denies: ear pain Respiratory: Denies: cough Cardiovascular: Denies: chest pain Endocrine: Denies: fatigue Gastrointestinal: Denies: abdominal pain Past Medical History Past Medical History: Coronary Artery Disease (CAD), Diabetes Mellitus, GERD/Reflux, Hyperlipidemia, Hypertension, Osteoarthritis (OA), Skin Disorder Additional Past Medical History / Comment(s): "TIA years ago", hx colitis, rash on legs, numbness in feet History of Any Multi-Drug Resistant Organisms: None Reported Past Surgical History: Heart Catheterization, Hysterectomy, Joint Replacement, Orthopedic Surgery, Tonsillectomy Additional Past Surgical History / Comment(s): left knee surgery, rt hip replacement, surgery for fx pelvis Past Anesthesia/Blood Transfusion Reactions: Motion Sickness Past Psychological History: Anxiety, Depression Smoking Status: Never smoker Past Alcohol Use History: Daily Past Drug Use History: None Reported - Past Family History Mother History Unknown: Yes Family Medical History: No Reported History General Exam Limitations: altered mental status General appearance: alert, in no apparent distress Head exam: Present: other (Ecchymosis and swelling and tenderness of the upper nose and right forehead) Eye exam: Present: normal appearance, PERRL, EOMI ENT exam: Present: normal oropharynx Neck exam: Present: normal inspection. Absent: tenderness Respiratory exam: Present: normal lung sounds bilaterally Cardiovascular Exam: Present: regular rate, normal rhythm GI/Abdominal exam: Present: soft. Absent: tenderness Extremities exam: Present: normal inspection, full ROM. Absent: tenderness Neurological exam: Present: alert, CN II-XII intact. Absent: motor sensory deficit Expanded Neurological exam: Present: protecting the airway Patient oriented to: Present: person, place. Absent: time Sensory exam: Upper Extremity Light Touch: Normal, Lower Extremity Light Touch: Normal Motor strength exam: RUE: 5, LUE: 5, RLE: 5, LLE: 5 Eye Response: (4) open spontaneously Motor Response: (6) obeys commands Verbal Response: (4) confused conversation Psychiatric exam: Present: normal affect, normal mood Skin exam: Present: normal color Course Vital Signs 12/17/23 12/17/23 17:45 18:00 Temperature 98.4 F Pulse Rate 56 L 56 L Respiratory 18 Rate Blood Pressure 154/75 151/79 O2 Sat by Pulse 93 L 95 Oximetry - Reevaluation(s) Reevaluation #1: 12/17/23 19:09 Call received from radiologist with concern for subdural. Patient and family updated. Patient will be transferred. Medical Decision Making - Medical Decision Making Was pt. sent in by a medical professional or institution (, PA, CHIMNEY SWEEPER, urgent care, hospital, or [place] [facility]...) When possible be specific @ -Patient was sent from [place] [facility] Did you speak to anyone other than the patient for history (EMS, parent, family, police, friend...)? What history was obtained from this source @ -Family later arrives and provides history that they actually found her on the floor and is unclear how long she was there Did you review nursing and triage notes (agree or disagree)? Why? @ -I reviewed and agree with nursing and triage notes Were old charts reviewed (outside hosp., previous admission, EMS record, old EKG, old radiological studies, urgent care reports/EKG's, [place] [facility] records)? Report findings @ -No old charts were reviewed Differential Diagnosis (chest pain, altered mental status, abdominal pain women, abdominal pain men, vaginal bleeding, weakness, fever, dyspnea, syncope, headache, dizziness, GI bleed, back pain, seizure, CVA, palpatations, mental health, musculoskeletal)? @ -MDM differential differential Musculoskeletal Muscular strain, contusion, ligament sprain, fracture, arthritis, septic arthritis, bursitis, cellulitis, muscle spasm, nerve compression, DVT, arterial occlusion, herpes zoster, electrolyte abnormality, tumor.... This is not meant to be in all inclusive list EKG interpreted by me (3pts min.). @ -As above X-rays interpreted by me (1pt min.). @ -None done CT interpreted by me (1pt min.). @ -CT scan C-spine shows no acute abnormality. CT scan brain shows 2 to 3 mm subdural hematoma left anterior falx. CT facial bones shows nasal fracture. U/S interpreted by me (1pt. min.). @ -None done What testing was considered but not performed or refused? (CT, X-rays, U/S, labs)? Why? @ -None What meds were considered but not given or refused? Why? @ -None Did you discuss the management of the patient with other professionals (professionals i.e. , PA, CHIMNEY SWEEPER, lab, RT, psych nurse, manager social work, comb machine operator, teacher, fare enforcement officer, vocational case manager)? Give summary @ -Case discussed with Dr. Garcia at [facility] will accept transfer Was smoking cessation discussed for >3mins.? @ -No Was critical care preformed (if so, how long)? @ -31 minutes critical care Were there social determinants of health that impacted care today? How? (Homelessness, low income, unemployed, alcoholism, drug addiction, t ransportation, low edu. Level, literacy, decrease access to med. care, group home, rehab)? @ -No Was there de-escalation of care discussed even if they declined (Discuss DNR or withdrawal of care, Hospice)? DNR status @ -No What co-morbidities impacted this encounter? (DM, HTN, Smoking, COPD, CAD, Cancer, CVA, ARF, Chemo, Hep., AIDS, mental health diagnosis, sleep apnea, morbid obesity)? @ -Patient is on Plavix Was patient admitted / discharged? Hospital course, mention meds given and route, prescriptions, significant lab abnormalities, going to OR and other pertinent info. @ -Patient on Plavix presents with fall. There is concern for small subdural. Patient will be transferred. Family updated. Family and patient updated Undiagnosed new problem with uncertain prognosis? @ -No Drug Therapy requiring intensive monitoring for toxicity (Heparin, Nitro, Insulin, Cardizem)? @ -No Were any procedures done? @ -No Diagnosis/symptom? @ -Subdural hematoma, nasal fracture Acute, or Chronic, or Acute on Chronic? @ -Acute, acute Uncomplicated (without systemic symptoms) or Complicated (systemic symptoms)? @ -Default Side effects of treatment? @ -No Exacerbation, Progression, or Severe Exacerbation? @ -No Poses a threat to life or bodily function? How? (Chest pain, [place], [place], pneumonia, PE, COPD, DKA, ARF, appy, cholecystitis, CVA, Diverticulitis, Homicidal, Suicidal, threat to staff... and all critical care pts) @ -Threat to neurological function Critical Care Time Critical Care Time: Yes Disposition Clinical Impression: Fall, Fracture, nasal, Subdural hematoma Disposition: OTHER INSTITUTION NOT DEFINED Is patient prescribed a controlled substance at d/c from ED?: No Referrals: Kirstie Vazquez DO [Primary Care Provider] - 1-2 days Time of Disposition: 19:29 - Out of Hospital Transfer - Req. Specs Out of Hospital Transfer - Requested Specifics: Other Emergency Center
[2023-12-17] MEDS: DIPH,PERTUS(ACELL)TETVAC-LF 0.5 ML VIAL IM ONE (18:18)
--- NOTE | 2023-12-17 18:53 | CT ---
EXAMINATION TYPE: CT brain cspine wo con CT DLP: 1004.3 mGycm, Automated exposure control for dose reduction was used. DATE OF EXAM: 12/17/2023 6:24 PM COMPARISON: None. CLINICAL INDICATION:Female, 88 years old with history of fall; Fall on thinners, facial trauma- bruis ed eyes and nose TECHNIQUE: Brain: Multiple axial CT images of the brain were obtained without IV contrast. Cspine: Axial CT images from the skull base to the inferior aspect of T2 we obtained without intraven ous contrast. Coronal and sagittal reformatted images were also reviewed. . FINDINGS: Brain: Please note that there is limited evaluation of the posterior fossa and posterior and portions of the middle cerebrum and due to motion artifact. Extra-axial spaces: Small area of attenuation and dural thickening along the falx anteriorly measurin g approximately 2 mm. Ventricular system: Dilatation in proportion to cerebral atrophy. Cerebral parenchyma: Cerebral atrophy. No gross evidence for acute intraparenchymal hemorrhage or mas s effect. The marroquin-white junction is well differentiated. Scattered hypoattenuating areas are seen w ithin the white matter. Remote lacunar injury of the left basal ganglia. Cerebellum: Unremarkable. Mass effect: No evidence of midline shift. Intracranial vasculature: Atherosclerotic calcifications of the intracranial vessels. Soft tissues: Large frontal and right supraorbital soft tissue hematoma. Calvarium/osseous structures: Slight cortical irregularity of the right nasal bone. Paranasal sinuses and mastoid air cells: Mild mucosal thickening of the right sphenoid sinus. Visualized orbits: Bilateral aphakia Cervical spine: Fracture: No acute fractures.. Osseous structures: Multilevel disc degenerative disease. Diffuse osteopenia. Degenerative changes of the partially visualized left shoulder. Vertebral alignment: Within normal limits. Spinal canal/Neural Foramina: Multilevel disc osteophyte complexes are seen with no significant spina l canal stenosis. No evidence for significant neural foraminal stenosis. Neck soft tissues: Prevertebral soft tissues are within normal limits. Other: The airway is patent. The lung apices are clear. IMPRESSION: 1. Small area of subdural hemorrhage along the left side of the falx anteriorly. 2. Large frontal and right supraorbital soft tissue hematoma. 3. Nonspecific white matter changes, likely secondary to chronic small vessel ischemic disease. Left basal ganglia lacunar injury. 4. No evidence of acute cervical spine fracture. 5. Moderate multilevel degenerative disc disease. Findings discussed with ordering provider Dr. Sven Hernandez over the phone by Dr. Dennis at 6:48 PM on 11/18.
--- NOTE | 2023-12-17 19:01 | CT ---
EXAMINATION TYPE: CT facial bones wo con CT DLP: 1004.3 mGycm, Automated exposure control for dose reduction was used. DATE OF EXAM: 12/17/2023 6:24 PM COMPARISON: CT of the same day. CLINICAL INDICATION:Female, 88 years old with history of fall; PHH, Fall on thinners, facial trauma- bruised eyes and nose TECHNIQUE: Multiple unenhanced axial CT images were obtained of the facial bones soft tissue and bone windows. Coronal, axial and sagittal reformatted images were also provided in soft tissue and bone windows and submitted for interpretation. Additional 3-D reformatted images were obtained on a [employer] workstation. . Contrast used: mL of , (none if empty) Oral contrast used: (none if empty) FINDINGS: There is subtle cortical irregularity involving the right nasal bone and left nasal bone near the manisha al bridge. Redemonstrated right supraorbital and frontal soft tissue hematoma. No evidence for other acute fractures, subluxation, dislocation, or areas of significant soft tissue swelling. Bilateral ap hakic otherwise the orbital contents are unremarkable.The temporal-mandibular joints appear symmetric . Mild sinus mucosal thickening of the right sphenoid sinus.. IMPRESSION: 1. Nondisplaced noncomminuted bilateral nasal bone fracture. 2. Right supraorbital and frontal soft tissue hematoma.
[2023-12-17 19:36] VITALS: RESP 16
[2023-12-17 19:41] LABS: Basophils # (A) 0.1 k/uL (0-0.2); Basophils % (A) 1 %; Eosinophils # (A) 0.2 k/uL (0-0.7); Eosinophils % (A) 2 %; HCT 39.1 % (34.0-46.0); HGB 12.7 gm/dL (11.4-16.0); Lymphocytes # (A) 2.3 k/uL (1.0-4.8); Lymphocytes % (A) 24 %; MCH 29.1 pg (25.0-35.0); MCHC 32.4 g/dL (31.0-37.0); MCV 89.7 fL (80.0-100.0); Mean Platelet Volume 7.8; Monocytes # (A) 0.6 k/uL (0-1.0); Monocytes % (A) 6 %; Neutrophils # (A) 6.5 k/uL (1.3-7.7); Neutrophils % (A) 66 %; Platelet Count 272 k/uL (150-450); RBC 4.36 m/uL (3.80-5.40); WBC 9.7 k/uL (3.8-10.6)
[2023-12-17 19:48] LABS: Prothrombin Time 10.7 sec (10.0-12.5)
[2023-12-17 19:57] LABS: ALT 25 U/L (4-34); AST 27 U/L (14-36); African American GFR (CKD) >90 (>60 ml/min/1.73 sqM); Albumin 4.2 g/dL (3.5-5.0); Alkaline Phosphatase 72 U/L (38-126); Anion Gap 7 mmol/L; Blood Urea Nitrogen 13 mg/dL (7-17); Calcium 9.1 mg/dL (8.4-10.2); Carbon Dioxide 24 mmol/L (22-30); Chloride 103 mmol/L (98-107); Creatine Kinase 73 U/L (30-135); Glucose 127 mg/dL (74-99); Non-African American GFR(CKD) 84 (>60 ml/min/1.73 sqM); Potassium 4.4 mmol/L (3.5-5.1); Sodium 134 mmol/L (137-145); Total Bilirubin 0.5 mg/dL (0.2-1.3); Total Protein 6.9 g/dL (6.3-8.2)
[2023-12-17 20:31] VITALS: BP 152/77; PULSE 56
== END 2023-12-17 20:31 | disposition other institution (70) ==
LOC: EC 17:37
DX: S02.2XXA Fracture of nasal bones, initial encounter for closed fracture (principal); S06.5X0A Traumatic subdural hemorrhage without loss of consciousness, initial encounter; Z88.1 Allergy status to other antibiotic agents; Z88.5 Allergy status to narcotic agent; Z88.8 Allergy status to other drugs, medicaments and biological substances; Z86.73 Personal history of transient ischemic attack (TIA), and cerebral infarction without residual deficits; Z23 Encounter for immunization; W01.0XXA Fall on same level from slipping, tripping and stumbling without subsequent striking against object, initial encounter
CPT/HCPCS: 36415; 70450; 70486; 72125; 80053; 82550; 85025; 85610; 85730; 90471; 90715; 99291